=== PATIENT | male | born 1970 | race Caucasian/White ===

== ENCOUNTER 2020-04-02 14:30 | Emergency (ER) | payer SELFPAY ==
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
[2020-04-02 14:50] VITALS: BP 121/83; PULSE 68; RESP 18; TEMP 36.6; O2SAT 97; BMI 29.4
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
--- NOTE | 2020-04-02 16:28 | PC.NURSE ---
Patient resting in chair with SO at bedside. Updated waiting for imaging.
[2020-04-02 17:09] VITALS: PULSE 69; RESP 17; O2SAT 94
--- NOTE | 2020-04-02 17:23 | PC.NURSE ---
Patient updated on POC. Denies any needs at this time
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
== END 2020-04-02 17:09 | disposition home or self-care (01) ==
PROVIDERS: Emergency Provider Nurse Practitioner Family
DX: S49.82XA Other specified injuries of left shoulder and upper arm, initial encounter (principal); W23.0XXA Caught, crushed, jammed, or pinched between moving objects, initial encounter
CPT/HCPCS: 12345; 73000; 73030; 99281; 99282

== ENCOUNTER 2020-12-09 13:43 | Emergency (ER) | payer SELFPAY ==
[2020-12-09 13:49] VITALS: BP 124/85; PULSE 87; RESP 18; TEMP 37.1; O2SAT 96; BMI 28.3
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
[2020-12-09] MEDS: iohexol 300 mg/mL 100 mL Btl IV (15:02)
[2020-12-09 15:10] VITALS: BP 116/76; PULSE 72; RESP 18; O2SAT 95
== END 2020-12-09 16:03 | disposition home or self-care (01) ==
PROVIDERS: Emergency Provider Family Medicine
DX: S22.31XA Fracture of one rib, right side, initial encounter for closed fracture (principal); S09.8XXA Other specified injuries of head, initial encounter; S00.01XA Abrasion of scalp, initial encounter; V44.6XXA Car passenger injured in collision with heavy transport vehicle or bus in traffic accident, initial encounter
CPT/HCPCS: 70450; 71260; 72125; 99283; Q9967

== ENCOUNTER 2021-11-01 11:24 | Emergency (ER) | payer OTHER, SELFPAY ==
[2021-11-01 11:45] VITALS: BP 125/77; PULSE 76; RESP 18; TEMP 36.6; O2SAT 97
[2021-11-01 12:02] VITALS: BP 125/77; PULSE 76; RESP 16; O2SAT 96
--- NOTE | 2021-11-01 12:11 | CT_ITS ---
WS: [id number] CT HEAD TECHNIQUE: Noncontrast CT of the head obtained from the skullbase to the vertex. CLINICAL INFORMATION: migraine COMPARISON: December 01, 2020 DLP: 1012.[address] scans at [facility] use at least one of these dose optimization techniques: automated e xposure control; mA and/or kV adjustment per patient size (includes targeted exams where dose is matc hed to clinical indication); or iterative reconstruction. FINDINGS: No evidence of intracranial hemorrhage or mass effect. Ventricular system and basal cisterns are johnson nt. No extra-axial fluid collections. No evidence of mass or mass effect. Normal gomez-white different iation. Mild mucosal thickening ethmoid air cells. Mastoid air cells well aerated. CT/CT head wo con* [id number] IMPRESSION: 1. No evidence of intracranial hemorrhage or mass effect. 2. Normal gomez-white differentiation. 3. Mild mucosal thickening ethmoid air cells. 4. No acute intracranial findings.
--- NOTE | 2021-11-01 12:12 | ED_ITS ---
HPI - Headache General: Chief Complaint: Headache Stated Complaint: Headache, pain into back as well Time Seen by Provider: 11/01/21 12:01 History of Present Illness: Patient is a 51-year-old male comes the ED with a headache. Symptoms started yesterday. Patient says he does have a history of migraines. He rates his current migraine a 10 out of 10. Migraine seems worse than past migraines. Says the pain starts at the front of his head and radiates over the top of his head and down into his neck. Endorses nausea. Lights make headache worse. Patient also endorses having a swollen tender knot on his forehead since headache started. He denies any injury, head trauma to cause symptoms. Denies any neurological symptoms such as vision changes, weakness to 1 side of his body or numbness or tingling to face. Associated symptoms: Reports nausea; Deny chest pain, fever(s), rash or vomiting Review of Systems Const: Denies: fever(s), chills or fatigue Eyes: Reports: photophobia; Denies: change in vision or eye discomfort ENMT: Denies: throat pain, odynophagia, nasal discharge or nasal congestion Card: Denies: chest pain, palpitations, edema, swelling of feet/ankles, dyspnea on exertion or orthopnea Resp: Denies: dyspnea, productive cough or non-productive cough GI: Reports: nausea; Denies: abdominal pain, vomiting, diarrhea, constipation or hematochezia : Denies: flank pain, difficulty urinating, dysuria or hematuria Musc: Denies: neck pain, back pain or extremity swelling Skin/Breast: Denies: rash or new lesions Neuro: Reports: headache(s); Denies: numbness in extremities or weakness in extremities [facility] ED PFSH: Medical History Migraine No pertinent family history Physical Exam Const: COMMON NORMALS: no acute distress, patient oriented x3 and alert GENERAL APPEARANCE: cooperative and comfortable HENMT: COMMON NORMALS: normocephalic HEAD & SCALP: normocephalic MOUTH: Normal oral and palatal mucosa present THROAT: posterior oropharynx normal and uvula midline Eye: COMMON NORMALS: Equal, round and reactive pupils present, EOMs intact bilaterally and conjunctivae normal CONJUNCTIVA: Yes conjunctivae normal PUPIL: Yes Equal, round and reactive pupils present Neck/C-Spine: COMMON NORMALS: supple GENERAL: Yes normal visual inspection Resp: COMMON NORMALS: normal respiratory effort, No retractions, No use of accessory muscles and clear to auscultation bilaterally AUSCULTATION: clear to auscultation bilaterally Cardio: COMMON NORMALS: regular rate, regular rhythm, S1 normal heart sound present, S2 normal heart sound present, No gallops present (Cardio), No clicks present (Cardio), No murmurs present (Cardio) and Peripheral pulses 2+ throughout RATE: regular rate RHYTHM: regular rhythm HEART SOUNDS: S1 normal heart sound present and S2 normal heart sound present PERIPHERAL PULSES: Peripheral pulses 2+ throughout GI: COMMON NORMALS: Normal to inspection, nondistended, normoactive bowel sounds present, Soft to palpation, non-tender and no masses PALPATION: Yes Soft to palpation : COMMON NORMALS: Yes no CVA tenderness BLADDER/KIDNEY EXAM: Yes no CVA tenderness Back/Pelvis: COMMON NORMALS: no CVA tenderness Extremity: COMMON NORMALS: normal to inspection Neuro: COMMON NORMALS: patient oriented x3, CN's II-XII intact bilaterally, moves all extremities, no focal motor deficits and no sensory deficits noted SENSORIUM/ORIENTATION: Yes alert SENSORY EXAM: Yes extremities (intact) MOTOR EXAM: 5/5 motor strength present throughout Skin: GENERAL SKIN EXAM: dry skin Course Reevaluation(s): Reevaluation #1: Patient's migraine has gotten better. He he feels like it is more manageable and he is ready to be discharged to go home and rest. Time: 13:34 Vital Signs: Vital signs: Vital Signs Temperature 97.9 F 11/01/21 11:45 Pulse Rate 76 11/01/21 12:02 Respiratory Rate 16 11/01/21 12:02 Blood Pressure 125/77 11/01/21 12:02 Pulse Oximetry 96 11/01/21 12:02 MDM - Headache Medical Decision Making Patient is a 51-year-old male comes to the ED with migraine. Patient has past medical history of migraines. Migraine is similar but pain is worse than previous migraines. vitals are stable. Exam is benign and neuro exam is normal. CT of head showed no acute findings. Patient was given IV migraine cocktail and his symptoms improved and wanted to go home and rest. Patient was discharged home and I will do follow-up with his PCP in the next week for reevaluation. Patient understood and agree with plan. Lab Data Radiology Impressions Head CT 11/01/21 12:11 IMPRESSION: 1. No evidence of intracranial hemorrhage or mass effect. 2. Normal gomez-white differentiation. 3. Mild mucosal thickening ethmoid air cells. 4. No acute intracranial findings. Discharge Plan Discharge Patient Disposition: Home Clinical Impression: Migraine Qualifiers: Migraine type: without aura Status migrainosus presence: without status migrainosus Intractability: not intractable Qualified Code(s): G43.009 - Migraine without aura, not intractable, without status migrainosus Condition: Stable Prescriptions: No Action No Known Home Medications 0RF hydrocodone-acetaminophen 5-325 mg tablet 1 tab PO Q8H PRN (Reason: pain) Qty: 21 0RF Discharge Orders: Discharge ED (Routine); Ordered 11/01/21 Ordered By: Ángel Soto Discharge Diet: Regular Discharge Activity: Increase activity as tolerated Patient Instructions: Headache - Migraine (Adult) Activity Restrictions/Additional Instructions: Follow-up with medical provider as directed in the next 7 to 10 days for reevaluation. Return to the ER or your medical provider if condition worsens. Please read and understand discharge instructions. Thank you for choosing [facility] for your healthcare needs today. Please realize this is an emergency room and that we are providing you with a medical screening exam and this may not be complete and all inclusive of all the testing and or work up that you may need to determine your ailment or severity of your illness. It is very important that you follow up as instructed or that you return to the Emergency Department should you have concerns or if your condition changes or worsens in any way. Coding Level of Care Code ED Kicking Machine Operator for Rajeev Fwdamian Exam Comprehensive
[2021-11-01] MEDS: metoclopramide 5 mg/mL SDV 2 mL 10 MG IVP (12:33)
[2021-11-01] MEDS: diphenhydrAMINE 50 mg/mL SDV 1mL 25 MG IVP (12:34)
[2021-11-01] MEDS: dexamethasone 10 mg/mL INJ IVP (12:36)
[2021-11-01] MEDS: ketorolac 30 mg/mL INJ IVP (12:36)
[2021-11-01] MEDS: sodium chloride 0.9% 500 ML 999 ML IV (12:37)
== END 2021-11-01 13:56 | disposition home or self-care (01) ==
PROVIDERS: Emergency Provider Physician Assistant
DX: G43.009 Migraine without aura, not intractable, without status migrainosus (principal)
CPT/HCPCS: 70450; 96374; 96375; 99283; J1100; J1200; J1885; J2765; J7040

== ENCOUNTER 2022-09-05 16:57 | Emergency (ER) | payer OTHER, SELFPAY ==
[2022-09-05 17:05] VITALS: PULSE 78; RESP 16; TEMP 36.4; O2SAT 96
[2022-09-05 17:22] VITALS: O2SAT 95
--- NOTE | 2022-09-05 17:22 | XRR_ITS ---
PROCEDURE INFORMATION: Exam: XR Chest Exam date and time: 09/05/2022 6:15 PM Age: 52 years old Clinical indication: Cough and shortness of breath; Additional info: Dyspnea/cough TECHNIQUE: Imaging protocol: Radiologic exam of the chest. Views: 1 view. COMPARISON: CT chest w con* [id number] 12/09/2020 2:55 PM FINDINGS: Lungs: Unremarkable. No consolidation. Pleural spaces: Unremarkable. No pleural effusion. No pneumothorax. Heart/Mediastinum: Unremarkable. No cardiomegaly. Bones/joints: Unremarkable. XR/XR chest 1V portable [id number] IMPRESSION: No acute findings.
[2022-09-05 17:30] VITALS: BP 120/77; O2SAT 93
[2022-09-05 17:38] LABS: Basophils % 0.3 %; Eosinophils # 0.3 10^3/uL (0.0-0.8); Eosinophils % 2.2 %; Hematocrit 45.4 % (42.0-52.0); Hemoglobin 15.2 g/dL (11.7-16.6); Lymphocytes # 2.7 10^3/uL (0.8-4.8); Lymphocytes % 23.7 %; Mean Corpuscular HGB Conc 33.5 g/dL (30.0-36.0); Mean Corpuscular Hemoglobin 30.8 pg (28.0-34.0); Mean Corpuscular Volume 91.9 fl (80-94); Mean Platelet Volume 8.9 fL (7.4-10.4); Monocytes # 1.1 10^3/uL (0.2-0.9); Monocytes % 9.4 %; Neutrophils # 7.39 10^3/uL (1.8-7.7); Neutrophils % 64.1 %; Nucleated Red Blood Cells % 0 %; Platelet Count 335 10^3/cmm (130-400); Red Blood Count 4.94 10^6/uL (4.1-5.3); Red Cell Distribution Width 13.2 % (12.1-15.1); White Blood Count 11.5 10^3/uL (4.0-10.0)
--- NOTE | 2022-09-05 17:38 | W.ED.NEUROSD ---
Documented by User: Gilson Gabriel DO 09/06/22 06:15 HPI - Neuro Symptoms/Deficit General: Chief Complaint: Neuro Symptoms/Deficit Stated Complaint: poss stroke symptoms Time Seen by Provider: 09/05/22 17:12 Source: patient Mode of arrival: ambulatory History of Present Illness: 52-year-old male presents emergency room initially told staff that his symptoms began about an hour and a half ago. When I went to the room he states his symptoms initially began with some numbness on his left side at around 1230. His family noticed that his speech has been slurred. NIH score when I first examined the patient he had one-point for dysarthria did not appear to have a sleep speech slurring but all the rest of his exam was normal. He denies any chest or abdominal pain. He has no history of previous stroke. Does have a history of migraines. Last Observed Normal: 12:30 Location: speech Severity: mild Relieving factors: none Exacerbating factors: none Context: gradual onset (Started around 1230 today) Associated symptoms: Deny chest pain, cough, diaphoresis, fevers/chills, headache(s), anorexia, malaise, nausea, seizures, short of breath, syncope, tingling, vertigo, vomiting or weakness Treatments Prior to Arrival: none Review of Systems Const: Denies: fever(s), chills, malaise or diaphoresis ENMT: Denies: throat pain, ear or mastoid pain, nasal discharge or nasal congestion Card: Denies: chest pain or syncope Resp: Denies: dyspnea, productive cough or non-productive cough GI: Denies: abdominal pain, nausea or vomiting : Denies: flank pain, dysuria, urinary frequency or urinary urgency Skin/Breast: Denies: rash or pruritus Neuro: Denies: headache(s) or vertigo PFS ED PFSH: Medical History Migraine No pertinent family history NIH stroke score NIHSS: Level Of Consciousness - 1a: 0 Level Of Consciousness Questions - 1b: Both Correct Level Of Consciousness Commands - 1c: Both Correct Best Gaze - 2: Normal Visual Stone - 3: No Visual Loss Facial Palsy - 4: Normal Motor Arm Right - 5: No Drift Motor Arm Left - 5: No Drift Motor Leg Right - 6: No Drift Motor Leg Left - 6: No Drift Limb Ataxia - 7: Absent Sensory - 8: Normal Best Language - 9: No Aphasia Dysarthia - 10: Mild/Moderate Dysarthia Extinction And Inattention - 11: 0 Score: Total Score: 1 Physical Exam Const: GENERAL APPEARANCE: cooperative and comfortable ORIENTATION/CONSCIOUSNESS: Yes awake, Yes oriented to person, Yes oriented to place and Yes oriented to time HENMT: COMMON NORMALS: normocephalic, atraumatic and hearing grossly normal bilaterally HEAD & SCALP: normocephalic and atraumatic Resp: COMMON NORMALS: normal respiratory effort, No retractions, No use of accessory muscles and clear to auscultation bilaterally AUSCULTATION: clear to auscultation bilaterally Cardio: COMMON NORMALS: regular rate, regular rhythm and No murmurs present (Cardio) RATE: regular rate RHYTHM: regular rhythm GI: COMMON NORMALS: Soft to palpation and No hepatosplenomegaly present AUSCULTATION: Yes normoactive bowel sounds PALPATION: Yes Soft to palpation, No Tenderness to palpation present (GI), No Guarding due to palpation present (GI) and Yes No hepatosplenomegaly present Extremity: COMMON NORMALS: normal to inspection, capillary refill normal, no clubbing, cyanosis or edema, no calf tenderness and no pedal edema Neuro: SENSORIUM/ORIENTATION: Yes oriented to person, Yes oriented to place and Yes oriented to time Skin: COMMON NORMALS: no rashes or lesions noted GENERAL SKIN EXAM: no rashes or lesions noted Course Vital Signs: Vital signs: Vital Signs Temperature 97.6 F 09/05/22 17:05 Pulse Rate 66 09/05/22 19:00 Respiratory Rate 20 H 09/05/22 19:00 Blood Pressure 114/75 09/05/22 19:00 Pulse Oximetry 95 09/05/22 19:00 Oxygen Delivery Me thod 09/05/22 17:05 MDM - Neuro Symptoms/Deficit Medical Decision Making Care signed out to Dr. Barker at change of shift. See final notes for diagnosis and disposition. Lab Data 09/05/22 17:10 09/05/22 17:10 Radiology Impressions Chest X-Ray 09/05/22 17:22 IMPRESSION: No acute findings. Laboratory Results WBC 11.5 10^3/uL (4.0-10.0) H 09/05/22 17:10 RBC 4.94 10^6/uL (4.1-5.3) 09/05/22 17:10 Hgb 15.2 g/dL (11.7-16.6) 09/05/22 17:10 Hct 45.4 % (42.0-52.0) 09/05/22 17:10 MCV 91.9 fl (80-94) 09/05/22 17:10 MCH 30.8 pg (28.0-34.0) 09/05/22 17:10 MCHC 33.5 g/dL (30.0-36.0) 09/05/22 17:10 RDW 13.2 % (12.1-15.1) 09/05/22 17:10 Plt Count 335 10^3/cmm (130-400) 09/05/22 17:10 MPV 8.9 fL (7.4-10.4) 09/05/22 17:10 Neut % (Auto) 64.1 % 09/05/22 17:10 Lymph % (Auto) 23.7 % 09/05/22 17:10 [place] % (Auto) 9.4 % 09/05/22 17:10 Eos % (Auto) 2.2 % 09/05/22 17:10 Baso % (Auto) 0.3 % 09/05/22 17:10 Neut # (Auto) 7.39 10^3/uL (1.8-7.7) 09/05/22 17:10 Lymph # (Auto) 2.7 10^3/uL (0.8-4.8) 09/05/22 17:10 [place] # (Auto) 1.1 10^3/uL (0.2-0.9) H 09/05/22 17:10 Eos # (Auto) 0.3 10^3/uL (0.0-0.8) 09/05/22 17:10 Baso # (Auto) 0.0 10^3/uL (0.0-0.1) 09/05/22 17:10 Nucleated RBC % (auto) 0 % 09/05/22 17:10 Nucleated RBCs # 0.0 /100WBC 09/05/22 17:10 Sodium 135 mmol/L (136-145) L 09/05/22 17:10 Potassium 4.0 mmol/L (3.5-5.1) 09/05/22 17:10 Chloride 99 mmol/L (98-107) 09/05/22 17:10 Carbon Dioxide 26 mmol/L (22-29) 09/05/22 17:10 Anion Gap 14.0 (5-19) 09/05/22 17:10 BUN 7 mg/dL (6-20) 09/05/22 17:10 Creatinine 0.9 mg/dL (0.7-1.2) 09/05/22 17:10 GFR Calculation 89.3 mL/min (90-130) L 09/05/22 17:10 Glucose 141 mg/dL (65-115) H 09/05/22 17:10 Calculated Osmolality 280 mOsm/kg (285-295) L 09/05/22 17:10 Calcium 8.9 mg/dL (8.5-10.5) 09/05/22 17:10 Total Bilirubin 0.2 mg/dL (0.15-1.2) 09/05/22 17:10 AST 16 U/L (0-40) 09/05/22 17:10 ALT 14 U/L (0-41) 09/05/22 17:10 Alkaline Phosphatase 55 U/L (40-130) 09/05/22 17:10 Total Protein 6.8 g/dL (6.6-8.7) 09/05/22 17:10 Albumin 4.2 g/dL (3.5-5.2) 09/05/22 17:10 Globulin 2.6 g/dL (1.3-4.6) 09/05/22 17:10 Lipase 29 U/L (13-60) 09/05/22 17:10 Urine Color Yellow (Yellow) 09/05/22 17:50 Urine Appearance Clear (CLEAR) 09/05/22 17:50 Urine pH 7 (5-7) 09/05/22 17:50 Ur Specific [place] 1.005 (1.005-1.030) 09/05/22 17:50 Urine Protein Neg (Negative) 09/05/22 17:50 Urine Glucose (UA) Norm (Normal) 09/05/22 17:50 Urine Ketones Negative (Negative) 09/05/22 17:50 Urine Blood Neg (Negative) 09/05/22 17:50 Urine Nitrate Negative (Negative) 09/05/22 17:50 Urine Bilirubin Neg (Negative) 09/05/22 17:50 Urine Urobilinogen Neg mg/dL (Negative) 09/05/22 17:50 Ur Leukocyte Esterase Negative (Negative) 09/05/22 17:50 Urine Opiates Screen Negative ng/mL (Negative) 09/05/22 17:50 Ur Barbiturates Screen Negative ng/mL (Negative) 09/05/22 17:50 Ur Phencyclidine Scrn Negative ng/mL (Negative) 09/05/22 17:50 Ur Amphetamines Screen Negative ng/mL (Negative) 09/05/22 17:50 U Benzodiazepines Scrn Negative ng/mL (Negative) 09/05/22 17:50 Urine Cocaine Screen Negative ng/mL (Negative) 09/05/22 17:50 U Marijuana (THC) Screen Positive ng/mL (Negative) H 09/05/22 17:50 Ethyl Alcohol < 10 mg/dL (0-10) 09/05/22 17:10 Discharge Plan Discharge Patient Disposition: Left Against Medical Advice Clinical Impression: Weakness Condition: Stable Prescriptions: No Action No Known Home Medications hydrocodone-acetaminophen 5-325 mg tablet 1 tab PO Q8H PRN (Reason: pain) Qty: 21 0RF Coding Level of Care Code ED College Counselor for Chg Fwd Documented by User: Sandra Barker MD 09/05/22 19:59 HPI - Neuro Symptoms/Deficit General: Chief Complaint: Neuro Symptoms/Deficit Stated Complaint: poss stroke symptoms Time Seen by Provider: 09/05/22 17:12 PFSH ED PFSH: Medical History Migraine No pertinent family history NIH stroke score Score: Total Score: 1 Course Vital Signs: Vital signs: Vital Signs Temperature 97.6 F 09/05/22 17:05 Pulse Rate 66 09/05/22 19:00 Respiratory Rate 20 H 09/05/22 19:00 Blood Pressure 114/75 09/05/22 19:00 Pulse Oximetry 95 09/05/22 19:00 Oxygen Delivery Me thod 09/05/22 17:05 MDM - Neuro Symptoms/Deficit Medical Decision Making Care signed out to Dr. Barker at change of shift. See final notes for diagnosis and disposition. Patient had walked out of the hospital and did not let anyone know. He just left hand spoke to the nurse I never got to speak to him either unsure why he left went out to the parking to look for was not able to be found and he eloped. Lab Data 09/05/22 17:10 09/05/22 17:10 Radiology Impressions Chest X-Ray 09/05/22 17:22 IMPRESSION: No acute findings. Laboratory Results WBC 11.5 10^3/uL (4.0-10.0) H 09/05/22 17:10 RBC 4.94 10^6/uL (4.1-5.3) 09/05/22 17:10 Hgb 15.2 g/dL (11.7-16.6) 09/05/22 17:10 Hct 45.4 % (42.0-52.0) 09/05/22 17:10 MCV 91.9 fl (80-94) 09/05/22 17:10 MCH 30.8 pg (28.0-34.0) 09/05/22 17:10 MCHC 33.5 g/dL (30.0-36.0) 09/05/22 17:10 RDW 13.2 % (12.1-15.1) 09/05/22 17:10 Plt Count 335 10^3/cmm (130-400) 09/05/22 17:10 MPV 8.9 fL (7.4-10.4) 09/05/22 17:10 Neut % (Auto) 64.1 % 09/05/22 17:10 Lymph % (Auto) 23.7 % 09/05/22 17:10 [place] % (Auto) 9.4 % 09/05/22 17:10 Eos % (Auto) 2.2 % 09/05/22 17:10 Baso % (Auto) 0.3 % 09/05/22 17:10 Neut # (Auto) 7.39 10^3/uL (1.8-7.7) 09/05/22 17:10 Lymph # (Auto) 2.7 10^3/uL (0.8-4.8) 09/05/22 17:10 [place] # (Auto) 1.1 10^3/uL (0.2-0.9) H 09/05/22 17:10 Eos # (Auto) 0.3 10^3/uL (0.0-0.8) 09/05/22 17:10 Baso # (Auto) 0.0 10^3/uL (0.0-0.1) 09/05/22 17:10 Nucleated RBC % (auto) 0 % 09/05/22 17:10 Nucleated RBCs # 0.0 /100WBC 09/05/22 17:10 Sodium 135 mmol/L (136-145) L 09/05/22 17:10 Potassium 4.0 mmol/L (3.5-5.1) 09/05/22 17:10 Chloride 99 mmol/L (98-107) 09/05/22 17:10 Carbon Dioxide 26 mmol/L (22-29) 09/05/22 17:10 Anion Gap 14.0 (5-19) 09/05/22 17:10 BUN 7 mg/dL (6-20) 09/05/22 17:10 Creatinine 0.9 mg/dL (0.7-1.2) 09/05/22 17:10 GFR Calculation 89.3 mL/min (90-130) L 09/05/22 17:10 Glucose 141 mg/dL (65-115) H 09/05/22 17:10 Calculated Osmolality 280 mOsm/kg (285-295) L 09/05/22 17:10 Calcium 8.9 mg/dL (8.5-10.5) 09/05/22 17:10 Total Bilirubin 0.2 mg/dL (0.15-1.2) 09/05/22 17:10 AST 16 U/L (0-40) 09/05/22 17:10 ALT 14 U/L (0-41) 09/05/22 17:10 Alkaline Phosphatase 55 U/L (40-130) 09/05/22 17:10 Total Protein 6.8 g/dL (6.6-8.7) 09/05/22 17:10 Albumin 4.2 g/dL (3.5-5.2) 09/05/22 17:10 Globulin 2.6 g/dL (1.3-4.6) 09/05/22 17:10 Lipase 29 U/L (13-60) 09/05/22 17:10 Urine Color Yellow (Yellow) 09/05/22 17:50 Urine Appearance Clear (CLEAR) 09/05/22 17:50 Urine pH 7 (5-7) 09/05/22 17:50 Ur Specific [place] 1.005 (1.005-1.030) 09/05/22 17:50 Urine Protein Neg (Negative) 09/05/22 17:50 Urine Glucose (UA) Norm (Normal) 09/05/22 17:50 Urine Ketones Negative (Negative) 09/05/22 17:50 Urine Blood Neg (Negative) 09/05/22 17:50 Urine Nitrate Negative (Negative) 09/05/22 17:50 Urine Bilirubin Neg (Negative) 09/05/22 17:50 Urine Urobilinogen Neg mg/dL (Negative) 09/05/22 17:50 Ur Leukocyte Esterase Negative (Negative) 09/05/22 17:50 Urine Opiates Screen Negative ng/mL (Negative) 09/05/22 17:50 Ur Barbiturates Screen Negative ng/mL (Negative) 09/05/22 17:50 Ur Phencyclidine Scrn Negative ng/mL (Negative) 09/05/22 17:50 Ur Amphetamines Screen Negative ng/mL (Negative) 09/05/22 17:50 U Benzodiazepines Scrn Negative ng/mL (Negative) 09/05/22 17:50 Urine Cocaine Screen Negative ng/mL (Negative) 09/05/22 17:50 U Marijuana (THC) Screen Positive ng/mL (Negative) H 09/05/22 17:50 Ethyl Alcohol < 10 mg/dL (0-10) 09/05/22 17:10 Discharge Plan Discharge Patient Disposition: Left Against Medical Advice Clinical Impression: Weakness Condition: Stable Prescriptions: No Action No Known Home Medications hydrocodone-acetaminophen 5-325 mg tablet 1 tab PO Q8H PRN (Reason: pain) Qty: 21 0RF Coding Level of Care Code ED College Counselor for Chg Umair
--- NOTE | 2022-09-05 17:48 | ECG_ITS ---
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 Measurements Intervals [place] Rate: 70 P: 52 NH: 145 QRS: 63 QRSD: 98 T: 14 QT: 385 QTc: 418 Interpretive Statements SINUS RHYTHM No previous ECG available for comparison Electronically Signed On 09-05-2022 18:06:56 DEBURRER STRIP by Ean Maciel M.D. [email or web address]
[2022-09-05 18:00] VITALS: BP 119/75; PULSE 70; RESP 21; O2SAT 94
[2022-09-05 18:02] LABS: Add Urine Microscopic? NO; Charge for UA Resulting for Rev
[2022-09-05 18:02] LABS: Alanine Aminotransferase 14 U/L (0-41); Albumin Level 4.2 g/dL (3.5-5.2); Alkaline Phosphatase 55 U/L (40-130); Aspartate Amino Transferase 16 U/L (0-40); Blood Urea Nitrogen 7 mg/dL (6-20); Calcium 8.9 mg/dL (8.5-10.5); Carbon Dioxide 26 mmol/L (22-29); Chloride 99 mmol/L (98-107); Globulin 2.6 g/dL (1.3-4.6); Glomerular Filtration Rate 89.3 mL/min (90-130); Glucose 141 mg/dL (65-115); Lipase 29 U/L (13-60); Osmolality Calculated 280 mOsm/kg (285-295); Sodium 135 mmol/L (136-145); Total Bilirubin 0.2 mg/dL (0.15-1.2); Total Protein 6.8 g/dL (6.6-8.7)
[2022-09-05 18:05] LABS: Alcohol Level < 10 mg/dL (0-10)
[2022-09-05 18:23] LABS: Bilirubin Urine Neg (Negative); Blood Urine Neg (Negative); Glucose Urine UA Norm (Normal); Ketones Urine Negative (Negative); Leukocyte Esterase Urine Negative (Negative); Nitrate Urine Negative (Negative); Protein Urine Neg (Negative); Specific Gravity, Urine 1.005 (1.005-1.030); Urine Appearance Clear (CLEAR); Urine Color Yellow (Yellow); Urobilinogen Urine Neg (Negative); pH Urine 7 (5-7)
[2022-09-05 18:26] LABS: Amphetamines Screen Urine Negative (Negative); Barbiturates Screen Urine Negative (Negative); Benzodiazepines Screen Urine Negative (Negative); Cocaine Screen Urine Negative (Negative); Opiate Screen Urine Negative (Negative); PCP Screen Urine Negative (Negative); THC Screen Urine Positive (Negative)
[2022-09-05 18:30] VITALS: BP 118/71; PULSE 69; RESP 17; O2SAT 95
[2022-09-05 19:00] VITALS: BP 114/75; PULSE 66; RESP 20; O2SAT 95
--- NOTE | 2022-09-05 19:58 | PC.NURSE ---
Patient was let out of the unit with IV still in. Registration called patient's cell phone and 's cell phone and left a message for them to come back and let us take it out.
== END 2022-09-05 19:45 | disposition left against medical advice (07) ==
PROVIDERS: Family Medicine; Emergency Provider Emergency Medicine
DX: R53.1 Weakness (principal); Z53.21 Procedure and treatment not carried out due to patient leaving prior to being seen by health care provider
CPT/HCPCS: 71045; 80053; 80306; 80307; 81003; 83690; 85025; 93005; 99285

== ENCOUNTER 2022-09-06 09:50 | Emergency (ER) | payer OTHER, SELFPAY ==
[2022-09-06 09:54] VITALS: BP 148/94; PULSE 74; RESP 16; TEMP 37.2; O2SAT 96; BMI 27.9
--- NOTE | 2022-09-06 10:29 | W.ED.SKABFB ---
HPI - Skin/Abscess/Foreign Bdy General: Chief complaint: Skin/Abscess/Foreign Body Stated complaint: head pain, knot on back of neck Time Seen by Provider: 09/06/22 10:01 Source: patient Mode of arrival: ambulatory History of Present Illness: 52-year-old male who was seen yesterday in the emergency room for weakness restarted doing stroke work-up a CT of his head was not done because he left AMA. He had no focal neurologic test when he was seen yesterday and is none today he is concerned today about graft glass rupturing through his head from an old accident he is also worried about several excoriated areas that he is concerned are infected on his arms. Finally he says he has been dizzy and lightheaded with his symptoms are persistent it is for several days male who is in part what he was seen for yesterday is observed walking down the souza with a normal gait. MD complaint: lesion (Excoriated areas on right cheek and both forearms) Onset (ago): day(s) Relieving factors: none Exacerbating factors: none Associated symptoms: Deny arthralgias, chills, cough, fever(s), itching, myalgias, nausea, rigidity, short of breath or vomiting Treatments prior to arrival: none Review of Systems Const: Denies: fever(s), chills, fatigue or malaise ENMT: Denies: throat pain, ear or mastoid pain, nasal discharge or nasal congestion Card: Denies: chest pain, edema, dyspnea on exertion or orthopnea Resp: Denies: dyspnea, productive cough or non-productive cough GI: Denies: abdominal pain, nausea or vomiting : Denies: flank pain, dysuria, urinary frequency or urinary urgency Skin/Breast: Denies: rash or pruritus [facility] ED PFSH: Medical History Migraine No pertinent family history Physical Exam Const: COMMON NORMALS: no acute distress GENERAL APPEARANCE: cooperative and comfortable ORIENTATION/CONSCIOUSNESS: Yes awake, Yes oriented to person, Yes oriented to place and Yes oriented to time HENMT: COMMON NORMALS: normocephalic, atraumatic and hearing grossly normal bilaterally HEAD & SCALP: normocephalic and atraumatic Resp: COMMON NORMALS: normal respiratory effort, No retractions, No use of accessory muscles and clear to auscultation bilaterally AUSCULTATION: clear to auscultation bilaterally Cardio: COMMON NORMALS: regular rate, regular rhythm and No murmurs present (Cardio) RATE: regular rate RHYTHM: regular rhythm GI: COMMON NORMALS: Soft to palpation and No hepatosplenomegaly present AUSCULTATION: Yes normoactive bowel sounds PALPATION: Yes Soft to palpation, No Tenderness to palpation present (GI), No Guarding due to palpation present (GI) and Yes No hepatosplenomegaly present Extremity: COMMON NORMALS: normal to inspection, capillary refill normal, no clubbing, cyanosis or edema, no calf tenderness and no pedal edema Neuro: SENSORIUM/ORIENTATION: Yes oriented to person, Yes oriented to place and Yes oriented to time Skin: COMMON NORMALS: no rashes or lesions noted GENERAL SKIN EXAM: no rashes or lesions noted Course Vital Signs: Vital signs: Vital Signs Temperature 98.9 F 09/06/22 09:54 Pulse Rate 64 09/06/22 11:39 Respiratory Rate 16 09/06/22 11:39 Blood Pressure 132/84 09/06/22 11:39 Pulse Oximetry 95 09/06/22 11:39 Oxygen Delivery Me thod 09/06/22 09:54 MDM - Skin/Abscess/Foreign Bdy Medicial Decision Making She was seen yesterday for similar type complaints stroke score was only 1 with some loss sensation in his face no complaint of more dizziness he has had normal gait observed walking is no focal neurologic deficits. He is very concerned with this glass in his head which I cannot really palpate replacement would just allow that to work its way out on its own. He has several excoriated areas on his arms that are minimally red and they can be treated with topical antibiotics we will also add Bactrim 1 p.o. twice a day for 7 days. He is concerned about lymph node in the back of the right side of the neck below the occiput and is palpable less than 1 cm recommend just observation if it persists can be ultrasound in the future. Up with primary care doctor. Follow-up with primary care regarding the excoriated skin lesions we will set him up for MRI of the head and follow-up with neurology Medical Records I reviewed the patient's medical records. Lab Data I reviewed the patient's lab results. Radiology Impressions Head CT 09/06/22 10:31 IMPRESSION: 1. No evidence of intracranial hemorrhage or mass effect. 2. Normal gomez-white differentiation 3. No acute intracranial findings. Discharge Plan Discharge Patient Disposition: Home Clinical Impression: Cellulitis, Neurotic excoriations, Weakness Condition: Stable Prescriptions: New mupirocin 2 % ointment 1 applic topical BID Qty: 22 0RF Bactrim DS 800-160 mg tablet 1 tab PO DAILY 7 Days Qty: 14 0RF No Action ibuprofen [Advil] 200 mg Tablet 400 mg PO Q6H PRN (Reason: Pain) Discharge Orders: Discharge ED (Routine); Ordered 09/06/22 Ordered By: Gilson Gabriel Discharge Diet: Usual diet Discharge Activity: Increase activity as tolerated Patient Instructions: Opioid Safety, Pain Management Activity Restrictions/Additional Instructions: You were seen today for multiple complaints. For the difficulty with balance which has been present for some time we will refer you to neurology. CT of your head today was normal there are no signs that you are having a stroke. Your concern about the glass in the scalp since that is from several years ago we do not remove those at this point would recommend just allowing him to work their way to the surface if they come to the skin then they can be removed at that time. There is a small lymph node in the back of your neck that is less than a centimeter and palpation would just observe that. Several of the excoriated areas on your arms are mildly red and can be treated with topical antibiotic ointment and the oral antibiotic given. Case management make arranges for you to see neurology. Coding Level of Care Code ED Health Care Recruiter for Rajeev Block NIH stroke score NIHSS Level Of Consciousness - 1a: 0 Level Of Consciousness Questions - 1b: Both Correct Level Of Consciousness Commands - 1c: Both Correct Best Gaze - 2: Normal Visual Stone - 3: No Visual Loss Facial Palsy - 4: Normal Motor Arm Right - 5: No Drift Motor Arm Left - 5: No Drift Motor Leg Right - 6: No Drift Motor Leg Left - 6: No Drift Limb Ataxia - 7: Absent Sensory - 8: Mild To Moderate Loss (Left side face only) Best Language - 9: No Aphasia Dysarthia - 10: Normal Extinction And Inattention - 11: 0 Score Total Score: 1
--- NOTE | 2022-09-06 10:31 | CT_ITS ---
WS: [id number] CT HEAD TECHNIQUE: Noncontrast CT of the head obtained from the skullbase to the vertex. CLINICAL INFORMATION: l sided weakness COMPARISON: CT November 01, 2021 DLP: 1121.[address] scans at [facility] use at least one of these dose optimization techniques: automated e xposure control; mA and/or kV adjustment per patient size (includes targeted exams where dose is matc hed to clinical indication); or iterative reconstruction. FINDINGS: No evidence of intracranial hemorrhage or mass effect. Ventricular system and basal cisterns are johnson nt. No extra-axial fluid collections. No evidence of mass or mass effect. Normal gomez-white different iation. Paranasal sinuses and mastoid air cells are well aerated. .Normal visualized soft tissues. No visuali zed radiopaque foreign objects in the scalp CT/CT head wo con* [id number] IMPRESSION: 1. No evidence of intracranial hemorrhage or mass effect. 2. Normal gomez-white differentiation 3. No acute intracranial findings.
[2022-09-06 11:18] VITALS: BP 132/84; PULSE 64; O2SAT 94
[2022-09-06 11:39] VITALS: BP 132/84; PULSE 64; RESP 16; O2SAT 95
--- NOTE | 2022-09-07 09:12 | DCPLANNER ---
Addendum entered by Cynthia Thornton 12/26/22 10:24: Patient had a follow up appointment scheduled with neurology - appointment cancelled Addendum entered by Cynthia Thornton 10/04/22 08:29: Patient had an MRI scheduled - patient did not attend appointment Addendum entered by Cynthia Thornton 09/21/22 07:29: Patient has a follow up appointment scheduled for Monday, October 03, 2022 at 3:15 for an MRI. Addendum entered by Cynthia Thornton 09/11/22 14:49: Patient has a follow up appointment scheduled for Saturday, December 24, 2022 at 12:[address] Wilson at neurology. Clinic will call patient with appointment information. Original Note: rehab department manager had message to schedule a follow up appointment for patient with neurology. child welfare caseworker sent patients information to the front office staff at neurology. Patients information will be printed and reviewed. Clinic will call patient with appointment information. rehab department manager also had message to schedule an outpatient MRI for patient. rehab department manager faxed signed order to centralized scheduling who will call patient with appointment information.
== END 2022-09-06 11:40 | disposition home or self-care (01) ==
PROVIDERS: Emergency Provider Family Medicine
DX: R53.1 Weakness (principal); L98.1 Factitial dermatitis; L03.114 Cellulitis of left upper limb; L03.113 Cellulitis of right upper limb
CPT/HCPCS: 70450; 99284

== ENCOUNTER 2023-02-07 17:35 | Emergency (ER) | payer SELFPAY ==
[2023-02-07 17:44] VITALS: BP 127/78; PULSE 83; RESP 16; O2SAT 96
--- NOTE | 2023-02-07 17:59 | XRR_ITS ---
PROCEDURE INFORMATION: Exam: XR Lumbosacral Spine Exam date and time: 02/07/2023 6:12 PM Age: 52 years old Clinical indication: Low back pain TECHNIQUE: Imaging protocol: Radiologic exam of the lumbosacral spine. Views: 2 or 3 views. COMPARISON: No relevant prior studies available. FINDINGS: Bones/joints: Lumbar vertebral body heights appear maintained. No compression deformity. Alignment appears unremarkable. Disc spaces appear maintained, without significant disc space narrowing. Mild anterior marginal spur formation of the lumbar vertebra indicates mild spondylotic change. Visualized sacrum appears unremarkable. Soft tissues: Unremarkable. XR/XR lumbar spine 2-3V* [id number] IMPRESSION: Mild spondylotic change with small amount anterior vertebral marginal spur formation, and without acute findings.
[2023-02-07 19:36] LABS: Add Urine Microscopic? NO; Charge for UA Resulting for Rev; Urine Appearance Clear (CLEAR); Urine Color Yellow (Yellow)
[2023-02-07 19:37] LABS: Bilirubin Urine Neg (Negative); Blood Urine Neg (Negative); Glucose Urine UA Norm (Normal); Ketones Urine Negative (Negative); Leukocyte Esterase Urine Negative (Negative); Nitrate Urine Negative (Negative); Protein Urine Neg (Negative); Urobilinogen Urine Norm (Negative); pH Urine 6 (5-7)
[2023-02-07] MEDS: cyclobenzaprine 10 mg Tablet PO (20:01)
[2023-02-07] MEDS: ketorolac 60 mg/2 mL INJ IM (20:05)
--- NOTE | 2023-02-07 20:07 | W.ED.BACK ---
HPI - Back Pain/Injury General: Chief Complaint: Back Pain/Injury Stated Complaint: Middle back Pain Time Seen by Provider: 02/07/23 18:59 History of Present Illness: Patient is in today for low back pain. He reports that approximately 2 days ago he started having mid back pain radiating all the way down to the low back. He reports that he does not know of any injury or trauma to the area. 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 He denies any saddle anesthesia, loss of bowel or bladder continence, fever, chills, nausea, vomiting, IV drug use. He denies any urinary frequency, urgency, hematuria. Associated symptoms: Deny abdominal pain, chills, dysuria, fever(s), nausea, syncope, urinary urgency or vomiting Review of Systems Const: Denies: fever(s), chills or body aches Eyes: Denies: change in vision or blurry vision Card: Denies: chest pain, palpitations, irregular heart rhythm, lightheadedness or syncope Resp: Denies: dyspnea, productive cough or non-productive cough GI: Denies: abdominal pain, nausea or vomiting : Denies: flank pain, dysuria, urinary frequency, urinary urgency or urinary hesitancy Musc: Reports: back pain Neuro: Denies: headache(s), numbness in extremities or weakness in extremities [facility] ED PFSH: Medical History Migraine No pertinent family history Physical Exam Const: COMMON NORMALS: no acute distress, patient oriented x3 and alert GENERAL APPEARANCE: cooperative ORIENTATION/CONSCIOUSNESS: Yes awake, Yes oriented to person, Yes oriented to place and Yes oriented to time Neck/C-Spine: COMMON NORMALS: full ROM Resp: COMMON NORMALS: normal respiratory effort, No retractions, No use of accessory muscles and clear to auscultation bilaterally EFFORT & INSPECTION: Yes symmetric chest movement AUSCULTATION: clear to auscultation bilaterally Cardio: COMMON NORMALS: regular rate, regular rhythm, S1 normal heart sound present and S2 normal heart sound present RATE: regular rate RHYTHM: regular rhythm HEART SOUNDS: S1 normal heart sound present and S2 normal heart sound present GI: COMMON NORMALS: Normal to inspection, nondistended, normoactive bowel sounds present, Soft to palpation, non-tender, No hepatosplenomegaly present, no masses and no bruits INSPECTION: Yes normal to inspection PALPATION: Yes Soft to palpation and Yes No hepatosplenomegaly present Back/Pelvis: OTHER: Patient has left side paraspinal muscular tenderness and spasm noted mid to low back. No vertebral point tenderness appreciated. Normal gait. No weakness to lower extremities. Pain is reproduced with palpation of musculature to the left of the spine. Normal straight leg raise Neuro: COMMON NORMALS: patient oriented x3 SENSORIUM/ORIENTATION: Yes alert, Yes oriented to person, Yes oriented to place and Yes oriented to time Psych: COMMON NORMALS: cooperative Course Vital Signs: Vital signs: Vital Signs Pulse Rate 83 02/07/23 17:44 Respiratory Rate 16 02/07/23 17:44 Blood Pressure 127/78 02/07/23 17:44 Pulse Oximetry 96 02/07/23 17:44 Oxygen Delivery Me thod Room Air 02/07/23 17:44 MDM - Back Pain/Injury Medical Decision Making Consider lumbar strain, osteoarthritis, X-ray shows no acute findings but is consistent with mild spondylitic change small amount of anterior vertebral marginal spur formation. Physical exam findings are consistent with muscle strain. We will treat patient conservatively with Toradol and muscle relaxant medication. Educated patient about possible benefits and side effects of medications provided today. Do not drive or operate machinery after taking medication. Do not take any other medications that make you sleepy with the Flexeril medication. Discussed conservative treatment including warm moist compresses, gentle stretches, gentle massage, no lifting x3 days. Follow-up with primary care provider as needed. Return to the ER for new or worsening symptoms. Labs Radiology Impressions Lumbar Spine X-Ray 02/07/23 17:59 IMPRESSION: Mild spondylotic change with small amount anterior vertebral marginal spur formation, and without acute findings. Laboratory Results Urine Color Yellow (Yellow) 02/07/23 19:14 Urine Appearance Clear (CLEAR) 02/07/23 19:14 Urine pH 6 (5-7) 02/07/23 19:14 Ur Specific [place] 1.020 (1.005-1.030) 02/07/23 19:14 Urine Protein Neg (Negative) 02/07/23 19:14 Urine Glucose (UA) Norm (Normal) 02/07/23 19:14 Urine Ketones Negative (Negative) 02/07/23 19:14 Urine Blood Neg (Negative) 02/07/23 19:14 Urine Nitrate Negative (Negative) 02/07/23 19:14 Urine Bilirubin Neg (Negative) 02/07/23 19:14 Urine Urobilinogen Norm mg/dL (Negative) 02/07/23 19:14 Ur Leukocyte Esterase Negative (Negative) 02/07/23 19:14 Discharge Plan Discharge Patient Disposition: Home Clinical Impression: Strain of lumbar region Condition: Stable Prescriptions: New cyclobenzaprine 10 mg tablet 10 mg PO TID PRN (Reason: muscle spasm) Qty: 9 0RF No Action ibuprofen [Advil] 200 mg Tablet 400 mg PO Q6H PRN (Reason: Pain) mupirocin 2 % ointment 1 applic topical BID Qty: 22 0RF Discharge Orders: Discharge ED (Routine); Ordered 02/07/23 Ordered By: Annmarie Finch Discharge Diet: Usual diet Discharge Activity: Limit activity as instructed Patient Instructions: Low Back Strain (ED) Activity Restrictions/Additional Instructions: No lifting x3 days. I recommend gentle stretches, gentle massage, warm compresses. Tomorrow you may start taking ibuprofen every 8 hours with food. Take Flexeril every 8 hours as needed for muscle spasms. Do not drive or operate machinery after taking Flexeril. Do not take any other medication or substance that makes you sleepy while taking Flexeril. Follow-up with primary care provider as needed. Return to the ER for any new or worsening symptoms. Stand Alone Forms: Work/School Release Coding Level of Care Code ED Lead Enterprise Architect for Rajeev Block
[2023-02-07 20:08] VITALS: BP 108/73; PULSE 67; RESP 16; O2SAT 96
== END 2023-02-07 20:09 | disposition home or self-care (01) ==
PROVIDERS: Emergency Provider Nurse Practitioner Family
DX: S39.012A Strain of muscle, fascia and tendon of lower back, initial encounter (principal); X50.1XXA Overexertion from prolonged static or awkward postures, initial encounter
CPT/HCPCS: 72100; 81003; 96372; 99284; J1885

== ENCOUNTER 2023-05-01 13:35 | Emergency (ER) | payer SELFPAY ==
[2023-05-01 13:59] VITALS: BP 119/82; PULSE 79; RESP 16; TEMP 36.8; O2SAT 96
--- NOTE | 2023-05-01 14:35 | ECG_ITS ---
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 Measurements Intervals [place] Rate: 78 P: 64 MN: 142 QRS: 85 QRSD: 110 T: 43 QT: 365 QTc: 417 Interpretive Statements SINUS RHYTHM Compared to ECG 09/05/2022 17:48:06 No significant changes Electronically Signed On 05-01-2023 19:36:51 CDT by Anthony Barros M.D. [id number]
--- NOTE | 2023-05-01 14:35 | XR_ITS ---
WS: [id number] Portable AP upright chest, 05/01/2023 Clinical Data: chest pain Comparison: None. Findings: No nodules, masses or effusions are seen. The heart is normal. The pulmonary vascularity is not increased. No pneumonia or pneumothorax is seen. Impression: Negative chest.
--- NOTE | 2023-05-01 14:54 | ED_ITS ---
HPI - Chest Pain General: Chief Complaint: Chest Pain Stated Complaint: chest/abd pain Time Seen by Provider: 05/01/23 14:50 Source: patient Mode of arrival: ambulatory History of Present Illness: 52-year-old male presents emergency room for chest pain that he had yesterday no chest pain at this time. He has not really noticed anything that exacerbates it or relieves it. He had some earlier today it resolved spontaneously. He is a smoker he is not diabetic no known history of coronary artery disease he has had some family history of coronary artery disease but no early cardiac deaths MD complaint: chest pain Onset (ago): day(s) (3-4) Timing of current episode: episodic Onset: during rest Pain location: substernal Pain radiation: other (LUQ abd) Severity: mild Quality: tightness and sharp Relieving factors: nothing Exacerbating factors: nothing Associated symptoms: Reports abdominal pain; Deny diaphoresis, dyspnea, fever(s), leg edema, nausea, palpitations, sense of impending doom, syncope or vomiting Review of Systems Const: Denies: fever(s), chills or diaphoresis Card: Reports: chest pain; Denies: palpitations or syncope Resp: Denies: dyspnea GI: Reports: abdominal pain; Denies: nausea or vomiting : Denies: dysuria, urinary frequency or urinary urgency Musc: Denies: neck pain or back pain Skin/Breast: Denies: rash PFSH ED PFSH: Medical History Migraine No pertinent family history Physical Exam Const: GENERAL APPEARANCE: cooperative and comfortable ORIENTATION /CONSCIOUSNESS: Yes awake, Yes oriented to person, Yes oriented to place and Yes oriented to time HENMT: COMMON NORMALS: normocephalic, atraumatic and hearing grossly normal bilaterally HEAD & SCALP: normocephalic and atraumatic Resp: COMMON NORMALS: normal respiratory effort, No retractions, No use of accessory muscles and clear to auscultation bilaterally AUSCULTATION: clear to auscultation bilaterally Cardio: COMMON NORMALS: regular rate, regular rhythm and No murmurs present (Cardio) RATE: regular rate RHYTHM: regular rhythm GI: COMMON NORMALS: Soft to palpation and No hepatosplenomegaly present AUSCULTATION: Yes normoactive bowel sounds PALPATION: Yes Soft to palpation, No Tenderness to palpation present (GI), No Guarding due to palpation present (GI) and Yes No hepatosplenomegaly present Extremity: COMMON NORMALS: normal to inspection, capillary refill normal, no clubbing, cyanosis or edema, no calf tenderness and no pedal edema Neuro: SENSORIUM/ORIENTATION: Yes oriented to person, Yes oriented to place and Yes oriented to time Skin: COMMON NORMALS: no rashes or lesions noted GENERAL SKIN EXAM: no rashes or lesions noted Course Vital Signs: Vital signs: Vital Signs Temperature 98.3 F 05/01/23 13:59 Pulse Rate 69 05/01/23 18:17 Respiratory Rate 18 05/01/23 18:17 Blood Pressure 119/82 05/01/23 13:59 Pulse Oximetry 98 05/01/23 18:17 Oxygen Delivery Me thod Room Air 05/01/23 13:59 MDM - Chest Pain Medical Decision Making Serial cardiac enzymes are negative. EKGs do not show any acute changes no ST elevation reviewed as found on the chart discharge patient home baby aspirin daily set up outpatient stress testing also add omeprazole 20 mg daily return if has further problems. Medical Records I reviewed the patient's medical records. Lab Data I reviewed the patient's lab results. 05/01/23 14:56 05/01/23 14:56 Laboratory Results WBC 10.33 10^3/uL (3.29-11.43) 05/01/23 14:56 RBC 5.45 10^6/uL (3.85-5.65) 05/01/23 14:56 Hgb 17.00 g/dL (11.27-16.99) H 05/01/23 14:56 Hct 50.2 % (37-53) 05/01/23 14:56 MCV 92.1 fl (82-101) 05/01/23 14:56 MCH 31.2 pg (27-33) 05/01/23 14:56 MCHC 33.9 g/dL (30-55) 05/01/23 14:56 RDW 13.7 % (12.1-15.1) 05/01/23 14:56 Plt Count 318 10^3/cmm (157-399) 05/01/23 14:56 MPV 8.7 fL (7.4-10.4) 05/01/23 14:56 Neut % (Auto) 57.0 % 05/01/23 14:56 Lymph % (Auto) 31.2 % 05/01/23 14:56 Alexander % (Auto) 7.7 % 05/01/23 14:56 Eos % (Auto) 3.2 % 05/01/23 14:56 Baso % (Auto) 0.6 % 05/01/23 14:56 Neut # (Auto) 5.89 10^3/uL (1.8-7.7) 05/01/23 14:56 Lymph # (Auto) 3.2 10^3/uL (0.8-4.8) 05/01/23 14:56 Alexander # (Auto) 0.8 10^3/uL (0.2-0.9) 05/01/23 14:56 Eos # (Auto) 0.3 10^3/uL (0.0-0.8) 05/01/23 14:56 Baso # (Auto) 0.1 10^3/uL (0.0-0.1) 05/01/23 14:56 Nucleated RBC % (auto) 0 % 05/01/23 14:56 Nucleated RBCs # 0.0 /100WBC 05/01/23 14:56 Sodium 137 mmol/L (136-145) 05/01/23 14:56 Potassium 4.3 mmol/L (3.5-5.1) 05/01/23 14:56 Chloride 98 mmol/L (98-107) 05/01/23 14:56 Carbon Dioxide 28 mmol/L (22-29) 05/01/23 14:56 Anion Gap 15.3 (5-19) 05/01/23 14:56 BUN 8 mg/dL (6-20) 05/01/23 14:56 Creatinine 1.0 mg/dL (0.7-1.2) 05/01/23 14:56 GFR Calculation 79.1 mL/min (90-130) L 05/01/23 14:56 Glucose 92 mg/dL (65-115) 05/01/23 14:56 Calculated Osmolality 282 mOsm/kg (285-295) L 05/01/23 14:56 Calcium 9.7 mg/dL (8.5-10.5) 05/01/23 14:56 Total Bilirubin 0.2 mg/dL (0.15-1.2) 05/01/23 14:56 AST 15 U/L (0-40) 05/01/23 14:56 ALT 16 U/L (0-41) 05/01/23 14:56 Alkaline Phosphatase 53 U/L (40-130) 05/01/23 14:56 Troponin T Baseline < 6 ng/L (0-15) 05/01/23 14:56 Troponin T 120 Minute 6.0 ng/L (0-15) 05/01/23 16:46 Delta Troponin T 0.08714 ABS# (0-10) 05/01/23 16:46 Total Protein 7.7 g/dL (6.6-8.7) 05/01/23 14:56 Albumin 5.1 g/dL (3.5-5.2) 05/01/23 14:56 Globulin 2.6 g/dL (1.3-4.6) 05/01/23 14:56 Lipase 28 U/L (13-60) 05/01/23 14:56 All radiology interpretation(s) finalized by discharge Discharge Plan Discharge Patient Disposition: Home Clinical Impression: Atypical chest pain Condition: Stable Prescriptions: New aspirin 81 mg tablet,delayed release (DR/EC) 81 mg PO DAILY Qty: 30 0RF omeprazole 20 mg capsule,delayed release(DR/EC) 20 mg PO DAILY Qty: 30 0RF No Action ibuprofen 200 mg Tablet 600 mg PO Q6H PRN (Reason: Pain) Discharge Orders: Discharge ED (Routine); Ordered 05/01/23 Ordered By: Gilson Gabriel Discharge Diet: Usual diet Discharge Activity: Limit activity as instructed Patient Instructions: Opioid Safety, Pain Management Activity Restrictions/Additional Instructions: You were seen today for chest pain. Your cardiac enzymes and EKG were unremarkable protective services case worker will make arrangements for an outpatient stress test. Recommend he start taking enteric-coated baby aspirin daily and omeprazole 20 mg daily. Coding Level of Care Code ED Tax Preparer for Rajeev Block
[2023-05-01 15:00] VITALS: PULSE 67; RESP 16; O2SAT 98
[2023-05-01 15:05] LABS: Basophils # 0.1 10^3/uL (0.0-0.1); Basophils % 0.6 %; Eosinophils # 0.3 10^3/uL (0.0-0.8); Eosinophils % 3.2 %; Hematocrit 50.2 % (37-53); Lymphocytes # 3.2 10^3/uL (0.8-4.8); Lymphocytes % 31.2 %; Mean Corpuscular HGB Conc 33.9 g/dL (30-55); Mean Corpuscular Hemoglobin 31.2 pg (27-33); Mean Corpuscular Volume 92.1 fl (82-101); Mean Platelet Volume 8.7 fL (7.4-10.4); Monocytes # 0.8 10^3/uL (0.2-0.9); Monocytes % 7.7 %; Neutrophils # 5.89 10^3/uL (1.8-7.7); Nucleated Red Blood Cells % 0 %; Platelet Count 318 10^3/cmm (157-399); Red Blood Count 5.45 10^6/uL (3.85-5.65); Red Cell Distribution Width 13.7 % (12.1-15.1); White Blood Count 10.33 10^3/uL (3.29-11.43)
[2023-05-01 15:30] VITALS: PULSE 61; O2SAT 96
[2023-05-01 15:31] LABS: Troponin(5th) Baseline < 6 ng/L (0-15)
[2023-05-01 15:32] LABS: Alanine Aminotransferase 16 U/L (0-41); Albumin Level 5.1 g/dL (3.5-5.2); Alkaline Phosphatase 53 U/L (40-130); Anion Gap 15.3 (5-19); Aspartate Amino Transferase 15 U/L (0-40); Blood Urea Nitrogen 8 mg/dL (6-20); Calcium 9.7 mg/dL (8.5-10.5); Carbon Dioxide 28 mmol/L (22-29); Chloride 98 mmol/L (98-107); Globulin 2.6 g/dL (1.3-4.6); Glomerular Filtration Rate 79.1 mL/min (90-130); Glucose 92 mg/dL (65-115); Lipase 28 U/L (13-60); Osmolality Calculated 282 mOsm/kg (285-295); Potassium 4.3 mmol/L (3.5-5.1); Sodium 137 mmol/L (136-145); Total Bilirubin 0.2 mg/dL (0.15-1.2); Total Protein 7.7 g/dL (6.6-8.7)
[2023-05-01 16:00] VITALS: PULSE 65; RESP 16; O2SAT 98
--- NOTE | 2023-05-01 16:44 | ECG_ITS ---
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 Measurements Intervals [place] Rate: 62 P: 54 DC: 153 QRS: 63 QRSD: 101 T: 39 QT: 401 QTc: 408 Interpretive Statements SINUS RHYTHM Compared to ECG 05/01/2023 13:55:03 No significant changes Electronically Signed On 05-01-2023 19:47:25 CDT by Anthony Barros M.D. [id number]
[2023-05-01 17:00] VITALS: PULSE 59; RESP 16; O2SAT 98
[2023-05-01 17:30] LABS: Troponin 5 2HR Delta 0.00001 ABS# (0-10)
[2023-05-01 18:17] VITALS: PULSE 69; RESP 18; O2SAT 98
--- NOTE | 2023-05-08 10:06 | PC.SOCIAL ---
Stress Test Patient does not have a PCP to follow up with stress test results. Message sent to Family medicine requesting appt to establish primary care with recommendations for stress test.
== END 2023-05-01 18:19 | disposition home or self-care (01) ==
PROVIDERS: Physician Assistant; Emergency Provider Family Medicine
DX: R07.89 Other chest pain (principal)
CPT/HCPCS: 36415; 71045; 80053; 83690; 84484; 85025; 93005; 99285

== ENCOUNTER 2023-07-02 11:29 | Emergency (ER) | payer SELFPAY ==
[2023-07-02 11:51] VITALS: BP 138/82; PULSE 71; RESP 16; TEMP 36.4; O2SAT 99; BMI 27.2
[2023-07-02 11:54] LABS: Basophils % 0.5 %; Eosinophils # 0.3 10^3/uL (0.0-0.8); Eosinophils % 4.7 %; Hematocrit 47.4 % (37-53); Lymphocytes # 2.4 10^3/uL (0.8-4.8); Lymphocytes % 35.9 %; Mean Corpuscular HGB Conc 33.3 g/dL (30-55); Mean Corpuscular Hemoglobin 31.2 pg (27-33); Mean Corpuscular Volume 93.7 fl (82-101); Mean Platelet Volume 8.8 fL (7.4-10.4); Monocytes # 0.6 10^3/uL (0.2-0.9); Monocytes % 8.9 %; Neutrophils # 3.28 10^3/uL (1.8-7.7); Neutrophils % 49.7 %; Nucleated Red Blood Cells % 0 %; Platelet Count 322 10^3/cmm (157-399); Red Blood Count 5.06 10^6/uL (3.85-5.65); Red Cell Distribution Width 13.6 % (12.1-15.1)
--- NOTE | 2023-07-02 12:02 | CT_ITS ---
WS: [id number] CT ABDOMEN PELVIS TECHNIQUE: Contrast-enhanced CT of the abdomen and pelvis with coronal and sagittal reformatted image s. CLINICAL INFORMATION: llq pain COMPARISON: CT 2012 DLP: 501.[address] scans at [facility] use at least one of these dose optimization techniques: automated e xposure control; mA and/or kV adjustment per patient size (includes targeted exams where dose is matc hed to clinical indication); or iterative reconstruction. FINDINGS: Diverticulosis. Tiny amount of induration in the LEFT lower quadrant about the sigmoid colon and desc ending LEFT colon compatible with diverticulitis. No drainable abscess or fluid collection. No free f luid in the pelvis. Urine distended bladder. Normal appendix in the RIGHT lower quadrant. Subsegmental atelectasis in the lung bases. Normal liver . Normal spleen. Normal portal vein and splenic vein. Normal GE junction. Normal gallbladder. Adrenal glands are normal. Normal renal parenchymal enhancement. No hydronephrosis. Normal caliber abdominal aorta. Tiny fat-containing umbilical hernia. Normal lumbar spine. IMPRESSION: 1. Suggestion of a tiny amount of acute diverticulitis in the LEFT lower quadrant involving the LEFT descending colon and sigmoid colon. No drainable abscess or fluid collection. 2. Prominent prostate for a patient this age measuring 4.1 x 4.2 cm. Recommend correlation PSA. 3. No other suspicious findings. Notified Sandra Barker MD at 07/02/2023 1:31 PM.
--- NOTE | 2023-07-02 12:02 | XR_ITS ---
WS: [id number] Right foot, 3 views, 07/02/2023 Clinical Data: injury Comparison: None. Findings: No fractures or dislocations are seen. No bone destruction or erosion is noted. The joint spaces and soft tissues are normal. Impression: Negative right foot.
[2023-07-02 12:03] VITALS: RESP 18; O2SAT 99
--- NOTE | 2023-07-02 12:03 | ED_ITS ---
HPI - Abdominal Pain 2 General: Chief Complaint: Abdominal Pain Stated Complaint: abd pain, blood in stool, right swollen foot Time Seen by Provider: 07/02/23 11:58 Source: patient Mode of arrival: ambulatory Limitations: no limitations History of Present Illness: 52-year-old male states has been having left lower quadrant abdominal pains been sharp in nature has been going on for roughly 5 to 6 days. States he has had some slight red blood in his stool it is very minimal. He denies any vomiting he states his pain is currently a 6 out of 10 denies any worsening proving factors. States he is also had some right foot pain for a day he states he did have surgery on that foot before and had pain in it before. Associated Symptoms: Reports hematochezia; Denies chills, diarrhea, dysuria, fever(s), nausea and vomiting Review of Systems 2 Const: Denies: fever(s), chills, body aches or change in appetite ENMT: Denies: throat pain or dental pain Card: Denies: chest pain Resp: Denies: dyspnea GI: Reports: abdominal pain and hematochezia; Denies: nausea, vomiting or diarrhea : Denies: dysuria Musc: Reports: extremity pain; Denies: neck pain or back pain Skin/Breast: Denies: rash Neuro: Denies: headache(s) PFSH ED 2 PFSH: Medical History Migraine No pertinent family history Physical Exam 2 Const: COMMON NORMALS: no acute distress, patient oriented x3 and healthy appearing HENMT: COMMON NORMALS: normocephalic and atraumatic HEAD & SCALP: n ormocephalic and atraumatic Neck/C-Spine: COMMON NORMALS: full ROM and supple Chest: COMMONS NORMALS: normal inspection of the chest Resp: COMMON NORMALS: normal respiratory effort Cardio: COMMON NORMALS: regular rate, regular rhythm and No murmurs present (Cardio) RATE: regular rate RHYTHM: regular rhythm GI: COMMON NORMALS: Normal to inspection, nondistended, normoactive bowel sounds present, Soft to palpation and no masses PALPATION: Yes Soft to palpation and Yes Tenderness to palpation present (GI) Details: LLQ Extremity: COMMON NORMALS: normal to inspection and full ROM NARRATIVE EXTREMITY EXAM: Right foot has normal appearance nontender to touch no erythema no warmth distal pulses intact Neuro: COMMON NORMALS: patient oriented x3, moves all extremities and no focal motor deficits Psych: COMMON NORMALS: mental status grossly normal, Normal thought process present and cooperative THOUGHT PROCESS: Normal thought process present Skin: COMMON NORMALS: no rashes or lesions noted and no wounds GENERAL SKIN EXAM: no rashes or lesions noted Course 2 Vital Signs: Vital signs: Vital Signs Temperature 97.6 F 07/02/23 11:51 Pulse Rate 71 07/02/23 11:51 Respiratory Rate 18 07/02/23 12:03 Blood Pressure 138/82 07/02/23 11:51 Pulse Oximetry 99 07/02/23 12:03 Oxygen Delivery Me thod Room Air 07/02/23 12:03 MDM - Abdominal Pain Medical Decision Making Patient presents with left lower quadrant pain CT does show a diverticulitis with no abscess white count is normal we will treat with Cipro Flagyl at home I did inform him he does have enlarged prostate on his CT as well he is to follow- up with a PCP or urologist. He is return if worsening he understands agrees to plan Medical Records I reviewed the patient's medical records. Lab Data I reviewed the patient's lab results. 07/02/23 11:46 07/02/23 11:46 Labs/Radiology: Laboratory Results WBC 6.60 10^3/uL (3.29-11.43) 07/02/23 11:46 RBC 5.06 10^6/uL (3.85-5.65) 07/02/23 11:46 Hgb 15.80 g/dL (11.27-16.99) 07/02/23 11:46 Hct 47.4 % (37-53) 07/02/23 11:46 MCV 93.7 fl (82-101) 07/02/23 11:46 MCH 31.2 pg (27-33) 07/02/23 11:46 MCHC 33.3 g/dL (30-55) 07/02/23 11:46 RDW 13.6 % (12.1-15.1) 07/02/23 11:46 Plt Count 322 10^3/cmm (157-399) 07/02/23 11:46 MPV 8.8 fL (7.4-10.4) 07/02/23 11:46 Neut % (Auto) 49.7 % 07/02/23 11:46 Lymph % (Auto) 35.9 % 07/02/23 11:46 [place] % (Auto) 8.9 % 07/02/23 11:46 Eos % (Auto) 4.7 % 07/02/23 11:46 Baso % (Auto) 0.5 % 07/02/23 11:46 Neut # (Auto) 3.28 10^3/uL (1.8-7.7) 07/02/23 11:46 Lymph # (Auto) 2.4 10^3/uL (0.8-4.8) 07/02/23 11:46 [place] # (Auto) 0.6 10^3/uL (0.2-0.9) 07/02/23 11:46 Eos # (Auto) 0.3 10^3/uL (0.0-0.8) 07/02/23 11:46 Baso # (Auto) 0.0 10^3/uL (0.0-0.1) 07/02/23 11:46 Nucleated RBC % (auto) 0 % 07/02/23 11:46 Nucleated RBCs # 0.0 /100WBC 07/02/23 11:46 PT 12.40 SECONDS (12.1-14.9) 07/02/23 11:46 INR 0.90 (0.8-1.2) 07/02/23 11:46 Sodium 137 mmol/L (136-145) 07/02/23 11:46 Potassium 4.1 mmol/L (3.5-5.1) 07/02/23 11:46 Chloride 100 mmol/L (98-107) 07/02/23 11:46 Carbon Dioxide 29 mmol/L (22-29) 07/02/23 11:46 Anion Gap 12.1 (5-19) 07/02/23 11:46 BUN 7 mg/dL (6-20) 07/02/23 11:46 Creatinine 0.9 mg/dL (0.7-1.2) 07/02/23 11:46 GFR Calculation 89.3 mL/min (90-130) L 07/02/23 11:46 Glucose 112 mg/dL (65-115) 07/02/23 11:46 Calculated Osmolality 283 mOsm/kg (285-295) L 07/02/23 11:46 Calcium 9.3 mg/dL (8.5-10.5) 07/02/23 11:46 Total Bilirubin 0.4 mg/dL (0.15-1.2) 07/02/23 11:46 AST 14 U/L (0-40) 07/02/23 11:46 ALT 14 U/L (0-41) 07/02/23 11:46 Alkaline Phosphatase 51 U/L (40-130) 07/02/23 11:46 Total Protein 7.1 g/dL (6.6-8.7) 07/02/23 11:46 Albumin 4.5 g/dL (3.5-5.2) 07/02/23 11:46 Globulin 2.6 g/dL (1.3-4.6) 07/02/23 11:46 Lipase 99 U/L (13-60) H 07/02/23 11:46 All radiology interpretation(s) finalized by discharge Discharge Plan Discharge Patient Disposition: Home Clinical Impression: Diverticulitis Condition: Stable Prescriptions: New hydrocodone-acetaminophen 5-325 mg tablet 1 tab PO Q6H PRN (Reason: pain) Qty: 14 0RF metronidazole 500 mg tablet 500 mg PO Q8H 7 Days Qty: 21 0RF ciprofloxacin HCl [Cipro] 500 mg tablet 500 mg PO BID Qty: 14 0RF ondansetron 4 mg tablet,disintegrating 4 mg PO Q6H PRN (Reason: nausea and vomiting) Qty: 14 0RF No Action ibuprofen 200 mg Tablet 600 mg PO Q6H PRN (Reason: Pain) aspirin 81 mg tablet,delayed release (DR/EC) 81 mg PO DAILY Qty: 30 0RF omeprazole 20 mg capsule,delayed release(DR/EC) 20 mg PO DAILY Qty: 30 0RF Discharge Orders: Discharge ED (Routine); Ordered 07/02/23 Ordered By: Sandra Barker Discharge Diet: Advance as tolerated Discharge Activity: Resume usual activity Patient Instructions: Diverticulitis (ED), Opioid Safety Stand Alone Forms: Work/School Release Coding Level of Care Code ED Advertising Sales Assistant for Rajeev Block
[2023-07-02 12:11] LABS: Alanine Aminotransferase 14 U/L (0-41); Albumin Level 4.5 g/dL (3.5-5.2); Alkaline Phosphatase 51 U/L (40-130); Anion Gap 12.1 (5-19); Aspartate Amino Transferase 14 U/L (0-40); Blood Urea Nitrogen 7 mg/dL (6-20); Carbon Dioxide 29 mmol/L (22-29); Chloride 100 mmol/L (98-107); Globulin 2.6 g/dL (1.3-4.6); Glomerular Filtration Rate 89.3 mL/min (90-130); Glucose 112 mg/dL (65-115); Lipase 99 U/L (13-60); Osmolality Calculated 283 mOsm/kg (285-295); Potassium 4.1 mmol/L (3.5-5.1); Sodium 137 mmol/L (136-145); Total Bilirubin 0.4 mg/dL (0.15-1.2); Total Protein 7.1 g/dL (6.6-8.7)
[2023-07-02] MEDS: ondansetron 2 mg/ML SDV 2 mL 4 MG IVP (12:12)
[2023-07-02] MEDS: morphine 4 mg/mL SDV 1 mL IVP (12:13)
[2023-07-02 12:27] LABS: Calcium 9.3 mg/dL (8.5-10.5)
[2023-07-02] MEDS: iohexol 350 mg/mL 500 mL Btl (per mL) IV (13:03)
== END 2023-07-02 13:45 | disposition home or self-care (01) ==
PROVIDERS: Emergency Provider Emergency Medicine
DX: K57.92 Diverticulitis of intestine, part unspecified, without perforation or abscess without bleeding (principal); Z79.82 Long term (current) use of aspirin
CPT/HCPCS: 36415; 73630; 74177; 80053; 83690; 85025; 85610; 96374; 96375; 99285; J2270; J2405; Q9967

== ENCOUNTER 2023-07-09 11:41 | Emergency (ER) | payer OTHER, SELFPAY ==
[2023-07-09 12:00] VITALS: BP 115/72; PULSE 68; RESP 16; TEMP 36.9; O2SAT 97; BMI 27.9
[2023-07-09 12:22] VITALS: BP 117/72; PULSE 62; RESP 16; O2SAT 98
[2023-07-09 12:39] LABS: Basophils % 0.6 %; Eosinophils # 0.2 10^3/uL (0.0-0.8); Eosinophils % 3.8 %; Hematocrit 46.5 % (37-53); Lymphocytes # 2.3 10^3/uL (0.8-4.8); Lymphocytes % 36.1 %; Mean Corpuscular HGB Conc 33.8 g/dL (30-55); Mean Corpuscular Hemoglobin 31.3 pg (27-33); Mean Corpuscular Volume 92.6 fl (82-101); Mean Platelet Volume 8.6 fL (7.4-10.4); Monocytes # 0.6 10^3/uL (0.2-0.9); Monocytes % 9.1 %; Neutrophils # 3.19 10^3/uL (1.8-7.7); Neutrophils % 50.2 %; Nucleated Red Blood Cells % 0 %; Platelet Count 327 10^3/cmm (157-399); Red Blood Count 5.02 10^6/uL (3.85-5.65); Red Cell Distribution Width 13.8 % (12.1-15.1); White Blood Count 6.35 10^3/uL (3.29-11.43)
--- NOTE | 2023-07-09 12:46 | ED_ITS ---
HPI - Abdominal Pain 2 General: Chief Complaint: Abdominal Pain Stated Complaint: abd pain Time Seen by Provider: 07/09/23 12:15 Source: patient Mode of arrival: ambulatory History of Present Illness: 52-year-[facility] complaint of right lower quadrant abdominal pain he was seen 1 week ago and treated with oral antibiotics for acute diverticulitis without perforation has completed that course of antibiotics and now is having pain on the right lower quadrant appears to be related she has been throwing up low-grade subjective fever. MD elicited complaint: abdominal pain Pertinent past history: diverticulitis Onset (ago): week(s) (1) Pain Consistency: constant Location: RLQ Severity: moderate Quality: sharp Exacerbating factors: nothing Relieving factors: nothing Associated Symptoms: Reports GI cramping, nausea and poor appetite; Denies anorexia, belching, bloating, change in bowel habits, change in stool character, chills, coffee ground emesis, constipation, diarrhea, dyspepsia, dysuria, excessive flatus, fever(s), heartburn, hematochezia, hematuria, hematemesis, fecal incontinence, loose stools, melena, syncope and vomiting Review of Systems 2 Const: Denies: fever(s) or chills Card: Denies: chest pain or syncope Resp: Denies: dyspnea GI: Reports: abdominal pain, nausea and GI cramping; Denies: vomiting, hematemesis, coffee ground emesis, heartburn, diarrhea, constipation, bloating, belching, excessive flatus, fecal incontinence, change in bowel habits, change in stool character, hematochezia or melena : Denies: dysuria, urinary frequency, urinary urgency or hematuria Musc: Denies: neck pain or back pain Skin/Breast: Denies: rash PFSH ED 2 PFSH: Medical History No pertinent family history Migraine Physical Exam 2 Const: GENERAL APPEARANCE: cooperative and comfortable O RIENTATION/CONSCIOUSNESS: Yes awake, Yes oriented to person, Yes oriented to place and Yes oriented to time HENMT: COMMON NORMALS: normocephalic, atraumatic and hearing grossly normal bilaterally HEAD & SCALP: normocephalic and atraumatic Resp: COMMON NORMALS: normal respiratory effort, No retractions, No use of accessory muscles and clear to auscultation bilaterally AUSCULTATION: clear to auscultation bilaterally Cardio: COMMON NORMALS: regular rate, regular rhythm and No murmurs present (Cardio) RATE: regular rate RHYTHM: regular rhythm GI: COMMON NORMALS: No hepatosplenomegaly present AUSCULTATION: Yes normoactive bowel sounds PALPATION: Yes Tenderness to palpation present (GI) Details: RLQ, No Guarding due to palpation present (GI) and Yes No hepatosplenomegaly present Extremity: COMMON NORMALS: normal to inspection, capillary refill normal, no clubbing, cyanosis or edema, no calf tenderness and no pedal edema Neuro: SENSORIUM/ORIENTATION: Yes oriented to person, Yes oriented to place and Yes oriented to time Skin: COMMON NORMALS: no rashes or lesions noted GENERAL SKIN EXAM: no rashes or lesions noted Course 2 Vital Signs: Vital signs: Vital Signs Temperature 98.4 F 07/09/23 12:00 Pulse Rate 71 07/09/23 15:26 Respiratory Rate 16 07/09/23 12:22 Blood Pressure 146/91 07/09/23 15:26 Pulse Oximetry 98 07/09/23 15:26 Oxygen Delivery Me thod Room Air 07/09/23 14:35 MDM - Abdominal Pain Medical Decision Making Labs and imaging reviewed no leukocytosis no acute diverticulitis abscess or acute appendicitis. His lipase is slightly elevated but he has no left upper quadrant abdominal pain likely from poor decreased oral intake. Recommend clear liquid diet 24 to 48 hours and advance as tolerated promethazine as needed follow-up as needed Medical Records I reviewed the patient's medical records. Lab Data I reviewed the patient's lab results. 07/09/23 12:21 07/09/23 12:21 Labs/Radiology: Radiology Impressions Abdomen/Pelvis CT 07/09/23 12:53 IMPRESSION: No acute findings. Laboratory Results WBC 6.35 10^3/uL (3.29-11.43) 07/09/23 12:21 RBC 5.02 10^6/uL (3.85-5.65) 07/09/23 12:21 Hgb 15.70 g/dL (11.27-16.99) 07/09/23 12:21 Hct 46.5 % (37-53) 07/09/23 12:21 MCV 92.6 fl (82-101) 12/26/23 12:21 MCH 31.3 pg (27-33) 07/09/23 12:21 MCHC 33.8 g/dL (30-55) 07/09/23 12:21 RDW 13.8 % (12.1-15.1) 07/09/23 12:21 Plt Count 327 10^3/cmm (157-399) 07/09/23 12:21 MPV 8.6 fL (7.4-10.4) 07/09/23 12:21 Neut % (Auto) 50.2 % 07/09/23 12:21 Lymph % (Auto) 36.1 % 07/09/23 12:21 [place] % (Auto) 9.1 % 07/09/23 12:21 Eos % (Auto) 3.8 % 07/09/23 12:21 Baso % (Auto) 0.6 % 07/09/23 12:21 Neut # (Auto) 3.19 10^3/uL (1.8-7.7) 07/09/23 12:21 Lymph # (Auto) 2.3 10^3/uL (0.8-4.8) 07/09/23 12:21 [place] # (Auto) 0.6 10^3/uL (0.2-0.9) 07/09/23 12:21 Eos # (Auto) 0.2 10^3/uL (0.0-0.8) 07/09/23 12:21 Baso # (Auto) 0.0 10^3/uL (0.0-0.1) 07/09/23 12:21 Nucleated RBC % (auto) 0 % 07/09/23 12:21 Nucleated RBCs # 0.0 /100WBC 07/09/23 12:21 Sodium 138 mmol/L (136-145) 07/09/23 12:21 Potassium 4.2 mmol/L (3.5-5.1) 07/09/23 12:21 Chloride 101 mmol/L (98-107) 07/09/23 12:21 Carbon Dioxide 27 mmol/L (22-29) 07/09/23 12:21 Anion Gap 14.2 (5-19) 07/09/23 12:21 BUN 7 mg/dL (6-20) 07/09/23 12:21 Creatinine 1.0 mg/dL (0.7-1.2) 07/09/23 12:21 GFR Calculation 79.1 mL/min (90-130) L 07/09/23 12:21 Glucose 119 mg/dL (65-115) H 07/09/23 12:21 Calculated Osmolality 285 mOsm/kg (285-295) 07/09/23 12:21 Calcium 8.8 mg/dL (8.5-10.5) 07/09/23 12:21 Total Bilirubin 0.2 mg/dL (0.15-1.2) 07/09/23 12:21 AST 25 U/L (0-40) 07/09/23 12:21 ALT 30 U/L (0-41) 07/09/23 12:21 Alkaline Phosphatase 45 U/L (40-130) 07/09/23 12:21 Total Protein 7.0 g/dL (6.6-8.7) 07/09/23 12:21 Albumin 4.4 g/dL (3.5-5.2) 07/09/23 12:21 Globulin 2.6 g/dL (1.3-4.6) 07/09/23 12:21 Lipase 156 U/L (13-60) H 07/09/23 12:21 Urine Color Yellow (Yellow) 07/09/23 13:34 Urine Appearance Clear (CLEAR) 07/09/23 13:34 Urine pH 6 (5-7) 07/09/23 13:34 Ur Specific [place] 1.015 (1.005-1.030) 07/09/23 13:34 Urine Protein Neg (Negative) 07/09/23 13:34 Urine Glucose (UA) Norm (Normal) 07/09/23 13:34 Urine Ketones Negative (Negative) 07/09/23 13:34 Urine Blood Neg (Negative) 07/09/23 13:34 Urine Nitrate Negative (Negative) 07/09/23 13:34 Urine Bilirubin Neg (Negative) 07/09/23 13:34 Urine Urobilinogen Norm mg/dL (Negative) 07/09/23 13:34 Ur Leukocyte Esterase Trace (Negative) H 07/09/23 13:34 Urine RBC 0-4 /hpf (0-2) H 07/09/23 13:34 Urine WBC 0-4 /hpf (0-5) H 07/09/23 13:34 Ur Squamous Epith Cells 0-4 /hpf (0-5) H 07/09/23 13:34 Amorphous Sediment Not Reportable 07/09/23 13:34 Urine Bacteria Trace /hpf (NONE) 07/09/23 13:34 Urine Mucus 1+ /hpf 07/09/23 13:34 All radiology interpretation(s) finalized by discharge Discharge Plan Discharge Patient Disposition: Home Clinical Impression: Abdominal pain Condition: Stable Prescriptions: New promethazine 25 mg tablet 25 mg PO Q6H PRN (Reason: nausea and vomiting) Qty: 20 0RF No Action ibuprofen 200 mg Tablet 600 mg PO Q6H PRN (Reason: Pain) omeprazole 20 mg capsule,delayed release(DR/EC) 20 mg PO DAILY Qty: 30 0RF ondansetron 4 mg tablet,disintegrating 4 mg PO Q6H PRN (Reason: nausea and vomiting) Qty: 14 0RF Discharge Orders: Discharge ED (Routine); Ordered 07/09/23 Ordered By: Gilson Gabriel Discharge Diet: Clear Liquid Discharge Activity: Increase activity as tolerated Patient Instructions: Abdominal Pain (ED), Opioid Safety, Pain Management Activity Restrictions/Additional Instructions: Thank you for choosing [facility] for your healthcare needs today. Please realize this is an emergency room and that we are providing you with a medical screening exam and this may not be complete and all inclusive of all the testing and or work up that you may need to determine your ailment or severity of your illness. It is very important that you follow up as instructed or that you return to the Emergency Department should you have concerns or if your condition changes or worsens in any way. You are seen today for abdominal pain laboratory test showed a slight elevation in lipase but CT was unremarkable. Recommend clear liquid diet for next 24 to 48 hours and advance as tolerated use antiemetics as needed Coding Level of Care Code ED Final Application Reviewer for Rajeev Block
--- NOTE | 2023-07-09 12:53 | CTR_ITS ---
PROCEDURE INFORMATION: Exam: CT Abdomen And Pelvis Without Contrast Exam date and time: 07/09/2023 1:03 PM Age: 52 years old Clinical indication: Abdominal pain; Generalized TECHNIQUE: Imaging protocol: Computed tomography of the abdomen and pelvis without contrast. Radiation optimization: All CT scans at this facility use at least one of these dose optimization techniques: automated exposure control; mA and/or kV adjustment per patient size (includes targeted exams where dose is matched to clinical indication); or iterative reconstruction. REPORTING DATA: Count of CT and Cardiac NM exams in prior 12 months: This patient has received 2 known CTs and 0 known cardiac nuclear medicine studies in the 12 months prior to the current study. COMPARISON: CT abdomen pelvis w con* [id number] 07/02/2023 1:00 PM RADIATION DOSE METRICS: Total DLP (mGy-cm): 505.01 FINDINGS: Liver: Normal. No mass. Gallbladder and bile ducts: Normal. No calcified stones. No ductal dilation. Pancreas: Normal. No ductal dilation. Spleen: Normal. No splenomegaly. Adrenal glands: Normal. No mass. Kidneys and ureters: Normal. No hydronephrosis. Stomach and bowel: Unremarkable. No obstruction. No mucosal thickening. Appendix: No evidence of appendicitis. Intraperitoneal space: Unremarkable. No free air. No significant fluid collection. Vasculature: Unremarkable. No abdominal aortic aneurysm. Lymph nodes: Unremarkable. No enlarged lymph nodes. Urinary bladder: Unremarkable as visualized. Reproductive: Unremarkable as visualized. Bones/joints: Unremarkable. No acute fracture. Soft tissues: Unremarkable. CT/CT abdomen pelvis wo con [id number] IMPRESSION: No acute findings.
[2023-07-09 12:56] LABS: Alanine Aminotransferase 30 U/L (0-41); Albumin Level 4.4 g/dL (3.5-5.2); Alkaline Phosphatase 45 U/L (40-130); Anion Gap 14.2 (5-19); Aspartate Amino Transferase 25 U/L (0-40); Blood Urea Nitrogen 7 mg/dL (6-20); Calcium 8.8 mg/dL (8.5-10.5); Carbon Dioxide 27 mmol/L (22-29); Chloride 101 mmol/L (98-107); Globulin 2.6 g/dL (1.3-4.6); Glomerular Filtration Rate 79.1 mL/min (90-130); Glucose 119 mg/dL (65-115); Lipase 156 U/L (13-60); Osmolality Calculated 285 mOsm/kg (285-295); Potassium 4.2 mmol/L (3.5-5.1); Sodium 138 mmol/L (136-145); Total Bilirubin 0.2 mg/dL (0.15-1.2)
[2023-07-09 13:35] VITALS: BP 115/73; O2SAT 99
[2023-07-09 14:11] LABS: Add Urine Microscopic? YES; Bilirubin Urine Neg (Negative); Blood Urine Neg (Negative); Glucose Urine UA Norm (Normal); Ketones Urine Negative (Negative); Leukocyte Esterase Urine Trace (Negative); Nitrate Urine Negative (Negative); Protein Urine Neg (Negative); Specific Gravity, Urine 1.015 (1.005-1.030); Urine Appearance Clear (CLEAR); Urine Color Yellow (Yellow); Urobilinogen Urine Norm (Negative); pH Urine 6 (5-7)
[2023-07-09 14:12] LABS: Add Urine Culture? No; Bacteria Urine TRACE /hpf; Mucus Urine 1+ /hpf; RBC Urine 0-4 /hpf (0-2); Squamous Epithelial Cell Urine 0-4 /hpf (0-5); WBC Urine 0-4 /hpf (0-5)
[2023-07-09 14:35] VITALS: BP 111/73; PULSE 87; O2SAT 98
[2023-07-09 15:26] VITALS: BP 146/91; PULSE 71; O2SAT 98
== END 2023-07-09 15:27 | disposition home or self-care (01) ==
PROVIDERS: Emergency Medicine; Emergency Provider Family Medicine
DX: R10.31 Right lower quadrant pain (principal)
CPT/HCPCS: 74176; 80053; 81001; 83690; 85025; 87040; 99284

== ENCOUNTER 2024-03-31 08:12 | Emergency (ER) | payer SELFPAY ==
[2024-03-31 08:26] VITALS: BP 149/97; PULSE 74; RESP 18; TEMP 36.8; O2SAT 98; BMI 25.1
--- NOTE | 2024-03-31 08:47 | ED_ITS ---
HPI - Headache 2 General: Chief Complaint: Headache Stated Complaint: Blood in stool, migraine Time Seen by Provider: 03/31/24 08:27 History of Present Illness: 53-year-old man who presents emergency r oom with a migraine headache has been present related to. Some nausea but no vomiting. He also complains of hemorrhoids. He says he has been having pain and some rectal bleeding. No fevers. No altered mental status. No chest pain. No shortness of breath. No abdominal pain. He says he does not have a primary. He does not have insurance. Discussed that if he needs treatment of hemorrhoids he will need to see general surgeon. We are checking basic lab work to make sure he does not become anemic. Treating his headache. Related Data Home Medications Medication Instructions Recorded Confirmed ibuprofen 200 mg tablet 600 mg PO Q6H PRN Pain 05/01/23 07/09/23 Previous Rx's Medication Instructions Recorded omeprazole 20 mg capsule,delayed 20 mg PO DAILY #30 caps 05/01/23 release ondansetron 4 mg disintegrating 4 mg PO Q6H PRN nausea and 07/02/23 tablet vomiting #14 tabs promethazine 25 mg tablet 25 mg PO Q6H PRN nausea and 07/09/23 vomiting #20 tabs diclofenac sodium 50 mg 50 mg PO BID PRN pain #14 tabs 03/31/24 tablet,delayed release hydrocortisone 1 %-pramoxine 1 % 1 applic WV TID PRN hemorrhoids 03/31/24 rectal foam (Proctofoam HC) #10 grams Allergies Allergy/AdvReac Type Severity Reaction Status Date / Time No Known Allergies Allergy Verified 07/02/23 11:50 Review of Systems 2 Narrative: Constitutional symptoms: Negative except as documented in HPI. Skin symptoms: Negative except as documented in HPI. Eye symptoms: Negative except as documented in HPI. ENMT symptoms: Negative except as documented in HPI. Respiratory symptoms: Negative except as documented in HPI. Cardiovascular symptoms: Negative except as documented in HPI. Gastrointestinal symptoms: Negative except as documented in HPI. Genitourinary symptoms: Negative except as documented in HPI. Musculoskeletal symptoms: Negative except as documented in HPI. Neurologic symptoms: Negative except as documented in HPI. Psychiatric symptoms: Negative except as documented in HPI. Endocrine symptoms: Negative except as documented in HPI. PFSH ED 2 PFSH: Medical History No pertinent family history Migraine Physical Exam 2 Narrative: EXAM NARRATIVE: General: Alert, no acute distress. Skin: Warm, dry. Head: Normocephalic, atraumatic. Neck: Supple, trachea midline. Eye: Extraocular movements are intact. Ears, nose, mouth and throat: mucosa moist. Cardiovascular: Regular, Normal peripheral perfusion. Respiratory: Lungs are clear to auscultation, respirations are non-labored, breath sounds are equal, Symmetrical chest wall expansion. Gastrointestinal: Soft, Nontender, Non distended Musculoskeletal: Normal ROM, no deformity. Neurological: Alert and oriented, No focal neurological deficit observed. Psychiatric: Cooperative, appropriate mood & affect. Course 2 Vital Signs: Vital signs: Vital Signs Temperature 98.2 F 03/31/24 08:26 Pulse Rate 69 03/31/24 09:21 Respiratory Rate 16 03/31/24 09:21 Blood Pressure 141/95 03/31/24 09:21 Pulse Oximetry 98 03/31/24 09:21 Oxygen Delivery Me thod Room Air 03/31/24 08:26 MDM - Headache Medical Decision Making Medical decision making: Differential diagnosis including but not limited to and based on the above HPI, review of systems and physical exam: Patient has migraine headache. Has history. Treating this. Checking basic lab work because he has been having some rectal bleeding. Orders placed to evaluate differential diagnosis based on the above differential, HPI and physical exam Lab Review: Laboratory results were reviewed and interpreted by myself the emergency room physician. Lab work is unremarkable. No leukocytosis. No anemia. No renal failure. I reviewed the patient's medical record. Reexamination: Patient remained stable. No increased work of breathing. No altered mental status. No focal motor deficits. Assessment and plan: Migraine headache Hemorrhoids ? IV Benadryl, Compazine, Norflex, Zofran and Toradol - Discharged home - Discussed plan with patient. Answered any questions. - Evaluation and treatment of this problem were appropriate in the emergency setting. Lab Data 03/31/24 08:42 03/31/24 08:42 Laboratory Results WBC 5.20 10^3/uL (3.29-11.43) 03/31/24 08:42 RBC 4.67 10^6/uL (3.85-5.65) 03/31/24 08:42 Hgb 14.90 g/dL (11.27-16.99) 03/31/24 08:42 Hct 44.4 % (37-53) 03/31/24 08:42 MCV 95.1 fl (82-101) 03/31/24 08:42 MCH 31.9 pg (27-33) 03/31/24 08:42 MCHC 33.6 g/dL (30-55) 03/31/24 08:42 RDW 13.7 % (12.1-15.1) 03/31/24 08:42 Plt Count 234 10^3/cmm (157-399) 03/31/24 08:42 MPV 8.7 fL (7.4-10.4) 03/31/24 08:42 Neut % (Auto) 48.1 % 03/31/24 08:42 Lymph % (Auto) 40.4 % 03/31/24 08:42 Dickinson % (Auto) 8.8 % 03/31/24 08:42 Eos % (Auto) 2.3 % 03/31/24 08:42 Baso % (Auto) 0.2 % 03/31/24 08:42 Neut # (Auto) 2.50 10^3/uL (1.8-7.7) 03/31/24 08:42 Lymph # (Auto) 2.1 10^3/uL (0.8-4.8) 03/31/24 08:42 Dickinson # (Auto) 0.5 10^3/uL (0.2-0.9) 03/31/24 08:42 Eos # (Auto) 0.1 10^3/uL (0.0-0.8) 03/31/24 08:42 Baso # (Auto) 0.0 10^3/uL (0.0-0.1) 03/31/24 08:42 Nucleated RBC % (auto) 0 % 03/31/24 08:42 Nucleated RBCs # 0.0 /100WBC 03/31/24 08:42 Sodium 141 mmol/L (136-145) 03/31/24 08:42 Potassium 4.1 mmol/L (3.5-5.1) 03/31/24 08:42 Chloride 105 mmol/L (98-107) 03/31/24 08:42 Carbon Dioxide 26 mmol/L (22-29) 03/31/24 08:42 Anion Gap 14.1 (5-19) 03/31/24 08:42 BUN 8 mg/dL (6-20) 03/31/24 08:42 Creatinine 0.9 mg/dL (0.7-1.2) 03/31/24 08:42 GFR Calculation 89.0 mL/min (90-130) L 03/31/24 08:42 Glucose 110 mg/dL (65-115) 03/31/24 08:42 Calculated Osmolality 291 mOsm/kg (285-295) 03/31/24 08:42 Calcium 8.2 mg/dL (8.5-10.5) L 03/31/24 08:42 Total Bilirubin 0.3 mg/dL (0.15-1.2) 03/31/24 08:42 AST 18 U/L (0-40) 03/31/24 08:42 ALT 24 U/L (0-41) 03/31/24 08:42 Alkaline Phosphatase 46 U/L (40-130) 03/31/24 08:42 Total Protein 6.7 g/dL (6.6-8.7) 03/31/24 08:42 Albumin 4.1 g/dL (3.5-5.2) 03/31/24 08:42 Globulin 2.6 g/dL (1.3-4.6) 03/31/24 08:42 All radiology interpretation(s) finalized by discharge Discharge Plan Discharge Patient Disposition: Home Clinical Impression: Migraine, Hemorrhoids Condition: Stable Prescriptions: New diclofenac sodium 50 mg tablet,delayed release (DR/EC) 50 mg PO BID PRN (Reason: pain) Qty: 14 0RF Proctofoam HC 1-1 % foam 1 applic WV TID PRN (Reason: hemorrhoids) Qty: 10 0RF No Action promethazine 25 mg tablet 25 mg PO Q6H PRN (Reason: nausea and vomiting) Qty: 20 0RF ibuprofen 200 mg Tablet 600 mg PO Q6H PRN (Reason: Pain) omeprazole 20 mg capsule,delayed release(DR/EC) 20 mg PO DAILY Qty: 30 0RF ondansetron 4 mg tablet,disintegrating 4 mg PO Q6H PRN (Reason: nausea and vomiting) Qty: 14 0RF Discharge Orders: Discharge ED (Routine); Ordered 03/31/24 Ordered By: Lauren Cedeno Referrals: Ming Mcgarry MD [Physician] - (If you continue to have trouble with hemorrhoids please call for an appointment with general surgery.) Discharge Diet: Usual diet Discharge Activity: Increase activity as tolerated Patient Instructions: Hemorrhoids (ED), Migraine Headache (ED) Activity Restrictions/Additional Instructions: Thank you for choosing [facility] for your healthcare needs today. Please realize this is an emergency room and that we are providing you with a medical screening exam and this may not be complete and all inclusive of all the testing and or work up that you may need to determine your ailment or severity of your illness. You have been screened and evaluated and felt safe for discharge. Health conditions do change or evolve sometimes and as such it is important that you follow up with your Primary Doctor to be re checked, 3-5 days is a general good time frame for follow up. You are always welcome to return to the ED for re assessment if your symptoms are worsening or you have new concerns Coding Level of Care Code ED Maintenance Mechanic Engine for Rajeev Block
[2024-03-31 08:48] LABS: Basophils % 0.2 %; Eosinophils # 0.1 10^3/uL (0.0-0.8); Eosinophils % 2.3 %; Hematocrit 44.4 % (37-53); Lymphocytes # 2.1 10^3/uL (0.8-4.8); Lymphocytes % 40.4 %; Mean Corpuscular HGB Conc 33.6 g/dL (30-55); Mean Corpuscular Hemoglobin 31.9 pg (27-33); Mean Corpuscular Volume 95.1 fl (82-101); Mean Platelet Volume 8.7 fL (7.4-10.4); Monocytes # 0.5 10^3/uL (0.2-0.9); Monocytes % 8.8 %; Neutrophils % 48.1 %; Nucleated Red Blood Cells % 0 %; Platelet Count 234 10^3/cmm (157-399); Red Blood Count 4.67 10^6/uL (3.85-5.65); Red Cell Distribution Width 13.7 % (12.1-15.1)
[2024-03-31 09:08] LABS: Alanine Aminotransferase 24 U/L (0-41); Albumin Level 4.1 g/dL (3.5-5.2); Alkaline Phosphatase 46 U/L (40-130); Anion Gap 14.1 (5-19); Aspartate Amino Transferase 18 U/L (0-40); Blood Urea Nitrogen 8 mg/dL (6-20); Calcium 8.2 mg/dL (8.5-10.5); Carbon Dioxide 26 mmol/L (22-29); Chloride 105 mmol/L (98-107); Creatinine Clr Calc Pharmacy 103.7669; Globulin 2.6 g/dL (1.3-4.6); Glucose 110 mg/dL (65-115); Osmolality Calculated 291 mOsm/kg (285-295); Potassium 4.1 mmol/L (3.5-5.1); Sodium 141 mmol/L (136-145); Total Bilirubin 0.3 mg/dL (0.15-1.2); Total Protein 6.7 g/dL (6.6-8.7)
[2024-03-31] MEDS: diphenhydrAMINE 50 mg/mL SDV 1mL 25 MG IVP (09:14)
[2024-03-31] MEDS: ketorolac 30 mg/mL INJ IVP (09:15)
[2024-03-31] MEDS: prochlorperazine 10 mg/2 mL Inj IVP (09:15)
[2024-03-31] MEDS: orphenadrine 30 mg/mL Inj 2 mL 60 MG IVP (09:15)
[2024-03-31] MEDS: ondansetron 2 mg/ML SDV 2 mL 4 MG IVP (09:15)
[2024-03-31 09:21] VITALS: BP 141/95; PULSE 69; RESP 16; O2SAT 98
[2024-03-31 10:03] VITALS: BP 131/89; PULSE 62; RESP 16; O2SAT 98
== END 2024-03-31 10:06 | disposition home or self-care (01) ==
PROVIDERS: Emergency Provider Emergency Medicine
DX: G43.909 Migraine, unspecified, not intractable, without status migrainosus (principal); K64.9 Unspecified hemorrhoids
CPT/HCPCS: 36415; 80053; 85025; 96374; 96375; 99284; J0780; J1200; J1885; J2360; J2405

== ENCOUNTER 2024-07-28 14:12 | Emergency (ER) | payer SELFPAY ==
[2024-07-28 14:21] VITALS: BP 151/94; PULSE 77; RESP 17; TEMP 36.3; O2SAT 97; BMI 25.8
--- NOTE | 2024-07-28 15:12 | XRR_ITS ---
PROCEDURE INFORMATION: Exam: XR Left Shoulder Exam date and time: 07/28/2024 3:16 PM Age: 53 years old Clinical indication: Pain; Shoulder; Left; Additional info: Shoulder pain TECHNIQUE: Imaging protocol: Radiologic exam of the left shoulder. Views: 2 or more views. COMPARISON: CR XR shoulder LT min 2V* [id number] 04/02/2020 3:55 PM FINDINGS: Bones/joints: Normal. Soft tissues: Normal. XR/XR shoulder LT min 2V* [id number] IMPRESSION: No acute findings.
--- NOTE | 2024-07-28 15:59 | CTR_ITS ---
PROCEDURE INFORMATION: Exam: CT Abdomen And Pelvis With Contrast Exam date and time: 07/28/2024 4:23 PM Age: 53 years old Clinical indication: Abdominal pain; Generalized; Additional info: Abd pain TECHNIQUE: Imaging protocol: Computed tomography of the abdomen and pelvis with contrast. Radiation optimization: All CT scans at this facility use at least one of these dose optimization techniques: automated exposure control; mA and/or kV adjustment per patient size (includes targeted exams where dose is matched to clinical indication); or iterative reconstruction. Contrast material: OMNIPAQUE 350; Contrast volume: 100 ml; Contrast route: INTRAVENOUS (IV); COMPARISON: CT abdomen pelvis wo con [id number] 07/09/2023 1:03 PM RADIATION DOSE METRICS: Total DLP (mGy-cm): 635.13 FINDINGS: Liver: Normal. No mass. Gallbladder and biliary ducts: Normal. No calcified stones. No ductal dilation. Pancreas: Normal. No ductal dilation. Spleen: Normal. No splenomegaly. Adrenal glands: Normal. No mass. Kidneys and ureters: Normal. No hydronephrosis. Stomach and bowel: Unremarkable. No obstruction. No mucosal thickening. Appendix: No evidence of appendicitis. Intraperitoneal space: Unremarkable. No free air. No significant fluid collection. Vasculature: Unremarkable. No abdominal aortic aneurysm. Lymph nodes: Unremarkable. No enlarged lymph nodes. Urinary bladder: Unremarkable as visualized. Reproductive: Unremarkable as visualized. Bones/joints: No acute fracture. Soft tissues: Unremarkable. CT/CT abdomen pelvis w con* [id number] IMPRESSION: No acute findings.
[2024-07-28 16:01] VITALS: BP 131/83; O2SAT 96
[2024-07-28 16:05] LABS: Basophils % 0.4 %; Eosinophils # 0.3 10^3/uL (0.0-0.8); Eosinophils % 3.6 %; Hematocrit 48.9 % (37-53); Lymphocytes # 2.8 10^3/uL (0.8-4.8); Lymphocytes % 34.5 %; Mean Corpuscular HGB Conc 33.3 g/dL (30-55); Mean Platelet Volume 9.1 fL (7.4-10.4); Monocytes # 0.7 10^3/uL (0.2-0.9); Monocytes % 8.5 %; Neutrophils # 4.27 10^3/uL (1.8-7.7); Neutrophils % 52.8 %; Nucleated Red Blood Cells % 0 %; Platelet Count 287 10^3/cmm (157-399); Red Blood Count 5.26 10^6/uL (3.85-5.65); Red Cell Distribution Width 12.6 % (12.1-15.1); White Blood Count 8.09 10^3/uL (3.29-11.43)
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
[2024-07-28 16:21] LABS: INR 0.82 (0.8-1.2)
[2024-07-28 16:26] LABS: Alanine Aminotransferase 12 U/L (0-41); Albumin Level 4.5 g/dL (3.5-5.2); Alkaline Phosphatase 43 U/L (40-130); Anion Gap 12.1 (5-19); Aspartate Amino Transferase 12 U/L (0-40); Blood Urea Nitrogen 7 mg/dL (6-20); Calcium 9.3 mg/dL (8.5-10.5); Carbon Dioxide 29 mmol/L (22-29); Chloride 101 mmol/L (98-107); Creatinine Clr Calc Pharmacy 105.0129; Globulin 2.9 g/dL (1.3-4.6); Glucose 82 mg/dL (65-115); Lipase 52 U/L (13-60); Osmolality Calculated 283 mOsm/kg (285-295); Potassium 4.1 mmol/L (3.5-5.1); Sodium 138 mmol/L (136-145); Total Bilirubin 0.2 mg/dL (0.15-1.2); Total Protein 7.4 g/dL (6.6-8.7)
[2024-07-28] MEDS: iohexol 350 mg/mL 500 mL Btl (per mL) IV (16:26)
[2024-07-28 17:25] VITALS: BP 120/80; PULSE 65; O2SAT 97
--- NOTE | 2024-08-03 07:23 | DCPLANNER ---
message sent to General surgery for follow up on GI Bleed-
== END 2024-07-28 17:34 | disposition home or self-care (01) ==
PROVIDERS: Emergency Provider Emergency Medicine
DX: K92.2 Gastrointestinal hemorrhage, unspecified (principal); M25.512 Pain in left shoulder
CPT/HCPCS: 73030; 74177; 80053; 83690; 85025; 85610; 99285

== ENCOUNTER 2024-12-02 10:33 | Outpatient (CLI) | payer OTHER, SELFPAY ==
--- NOTE | 2024-12-02 11:15 | XR_ITS ---
WS: [id number] Left shoulder, 3 views, 12/02/2024 Clinical Data: OSTEOARTHRITIS L SHOULDER Comparison: Left shoulder, 07/28/2024 Findings: No fractures or dislocations are seen. The AC joint is normal. The adjacent left clavicle, left scapula and ribs are normal. The soft tissues are unremarkable. XR/XR shoulder LT min 2V* [id number] Impression: Negative left shoulder.
--- NOTE | 2024-12-02 11:15 | XR_ITS ---
WS: [id number] Right knee, AP and lateral views, 12/02/2024 Clinical Data: OSTEOARTHRITIS R KNEE Comparison: None. Findings: No fractures or dislocations are seen. The joint spaces are normal. The patella is intact. The soft tissues are unremarkable. XR/XR knee RT 1-2V [id number] Impression: Negative right knee.
== END 2024-12-02 10:34 | disposition home or self-care (01) ==
PROVIDERS: Visit Provider Family Medicine
DX: Z02.71 Encounter for disability determination (principal)
CPT/HCPCS: 73030; 73560

== ENCOUNTER 2025-03-09 11:44 | Emergency (ER) | payer MEDICAID, SELFPAY ==
--- OUTSIDE RECORDS SUMMARY | 2025-03-09 11:48 | XMS_ITS | Encounter Summary ---
Author Organization [facility] Address [address] [place] [address] Care Team Providers Care Presidential Helicopter Crew Chief Name Role Phone Garrett Bahena MD Primary Care Provider [phone] Encounter Details Date Type Department Care Team (Late st Contact Info) Description 03/02/2025 External Device Data [facility] ABSTRACTION Provider, Abstract NO ADDRESS ON FILE Social History Tobacco Use Types Packs/Day Years Used Date Smoking Tobacco: Every Day Cigarettes Smokeless Tobacco: Never Alcohol Use Standard Drinks/Week Comments Yes 0 (1 standard drink = 0.6 oz pur e alcohol) Sex and Gender Information Value Date Recorded Sex Assigned at Not on file 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
--- OUTSIDE RECORDS SUMMARY | 2025-03-09 11:48 | XMS_ITS | Clinical Summary ---
Author Organization [facility] Address [address] [facility] Attn: [place] [address] Care Team Providers Care Implementation Engineer Name Role Phone Garrett Bahena MD Primary Care Provider [phone] Allergies No known active allergies Medications traMADol (ULTRAM) 50 mg tabletIndication s:Acute bilateral lower abdominal pain Take 1 Tablet (50 mg) by mouth every 8 hours as needed for Pain. 20 Tablet 10/16/2024 Active Active Problems Problem Noted Date Diagnosed Date Tobacco use 10/14/2015 Encounters Date Type Department Care Team Description 03/02/2025 External Device Data [facility] ABSTRACTION Provider, Abstract 12/15/2024 External Device Data [facility] ABSTRACTION Provider, Abstract 12/10/2024 Abstract [facility] [address] [place] [address] Provider, Abstract from Last 3 Months Family History Medical History Relation Name Comments Healthy Brother Healthy Daughter Other Father Healthy Maternal Grandfather Heart Disease Maternal Grandmother Diabetes Mother Heart Disease Paternal Grandfather Other Paternal Grandmother Healthy Sister 1 Healthy Sister 2 Healthy Son 1 Healthy Son 2 Relation Name Status Comments Brother Alive Daughter Alive Father Alive Maternal Grandfather Alive Maternal Grandmother Mother Paternal Grandfather Paternal Grandmother Sister 1 Alive Sister 2 Alive Son 1 Alive Son 2 Alive Social History Tobacco Use Types Packs/Day Years Used Date Smoking Tobacco: Every Day Cigarettes Smokeless Tobacco: Never Tobacco Cessation:Ready to Q uit: No; Counseling Given: Yes Alcohol Use Standard Drinks/Week Comments Yes 0 (1 standard drink = 0.6 oz pur e alcohol) Sex and Gender Information Value Date Recorded Sex Assigned at Not on file 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 Gender Identity Not on file Sexual Orientation Not on file Last Filed Vital Signs Vital Sign Reading Time Taken Comments Blood Pressure 130/80 10/06/2024 1:18 PM CDT Pulse 88 10/06/2024 1:18 PM CDT Temperature 36.6 C (97.8 F) 10/06/2024 1:18 PM CDT Respiratory Rate 18 10/06/2024 1:18 PM CDT Oxygen Saturation 97% 10/06/2024 1:18 PM CDT Inhaled Oxygen Concentration - - Weight 85.7 kg (189 lb) 10/06/2024 1:18 PM CDT Height 175.3 cm (5' 9 ) 10/06/2024 1:18 PM CDT Body Mass Index 27.91 10/06/2024 1:18 PM CDT Plan of Treatment Health Maintenance Due Date Last Done Comments Pre-Diabetes and Diabetes Screening 1972 DTAP/TDAP/TD VACCINES (1 - Tdap) 1991 HEPATITIS B VACCINES (1 of 3 - 19+ 3-dose series) 09/1991 COLORECTAL SCREENING 2017 Colorectal Cancer Screening 2017 FIT-DNA Q 3 years 2017 FIT/FOBT Q 1 year 2017 Flex Sig/CT Colonography Q 5 years 2017 ZOSTER VACCINE (1 of 2) 2022 Preventative Visit- Commercial 07/15/2024 INFLUENZA VACCINE (#1) 2025 10/02/2024 Insurance [employer] INDIVIDUAL EXCHANGE [id number] Care Teams Implementation Engineer Relationship Specialty Start Date End Date Garrett Bahena MD [address] [id number] PCP - General Family Practice 09/14/24
--- NOTE | 2025-03-09 12:03 | XR_ITS ---
WS: [id number] Exam: XR chest 1V portable [id number] Date/Time of Exam: 03/09/2025 12:16 PM Reason For Exam: dyspnea/cough Comparison 05/01/2023. Lungs are fully inflated and clear. Normal cardiomediastinal silhouette. No pleural effusion. Bony structures are intact. XR/XR chest 1V portable [id number] IMPRESSION: 1. Normal chest.
--- NOTE | 2025-03-09 12:03 | ECG_ITS ---
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 Measurements Intervals Douglass Rate: 74 P: 67 SC: 147 QRS: 100 QRSD: 108 T: 31 QT: 400 QTc: 444 Interpretive Statements SINUS RHYTHM BORDERLINE RIGHT AXIS DEVIATION [QRS AXIS > 90] INTERPRETATION BASED ON A DEFAULT AGE OF 40 YEARS Compared to ECG 05/01/2023 16:44:28 No significant changes Electronically Signed On 03-09-2025 18:07:21 CDT by Anthony Barros M.D. [email or web address]
[2025-03-09 12:12] VITALS: BP 152/95; PULSE 85; RESP 16; TEMP 36.4; O2SAT 98; BMI 23.6
[2025-03-09 13:01] VITALS: BP 144/89; PULSE 79; O2SAT 96
--- NOTE | 2025-03-09 13:04 | XR_ITS ---
WS: [email or web address] Exam: XR lumbar spine 2-3V* [id number] Date/Time of Exam: 03/09/2025 1:15 PM Reason For Exam: back pain/fall DLP: Comparison 02/07/2023. . No fracture or dislocation. Mild spondylosis. There is straightening. Posterior elements are intact. No significant change. XR/XR lumbar spine 2-3V* [id number] IMPRESSION: 1. Mild degenerative changes and straightening. 2. No fracture or malalignment.
[2025-03-09 13:05] LABS: Hematocrit 48.7 % (37-53); Hemoglobin 16.50 g/dL (11.27-16.99); Mean Corpuscular HGB Conc 33.9 g/dL (30-55); Mean Corpuscular Hemoglobin 31.8 pg (27-33); Mean Corpuscular Volume 93.8 fl (82-101); Nucleated Red Blood Cells % 0 %; Platelet Count 311 10^3/cmm (157-399); Red Blood Count 5.19 10^6/uL (3.85-5.65); White Blood Count 8.73 10^3/uL (3.29-11.43)
--- NOTE | 2025-03-09 13:06 | W.ED.GENADLT ---
HPI - General Adult General: Chief complaint: Back Pain/Injury Stated complaint: sob fall having trouble moving Time Seen by Provider: 03/09/25 12:50 Source: patient Mode of arrival: ambulatory Limitations: no limitations History of Present Illness: Patient is a 54-year-old male who presents to the ED today for medical evaluation of multiple concerns. He states a few days ago his blood sugar got low causing him to fall through his front door. He states his neighbor found him about an hour later lying on the ground. He was able to crawl back to his house. He has continued to care for himself over the past few days. Patient states he is not a known diabetic. He does not have a glucometer and does not check his sugars at home. He states he has a history of hypoglycemia and keeps track of his blood sugars in my head and can tell when it runs low. He has a complaint of some lower back pain and states there is a small bruised area that he must of injured during the fall. He has been ambulatory without difficulty or assistance. He does not complain of leg pain or weakness or numbness. No saddle anesthesia or bowel/bladder dysfunction. He also complains of blood in his stool. Apparently this has been present over the past 3 years. He states because of insurance reasons he has had multiple colonoscopies canceled but states he now has his insurance straightened out and is currently scheduled for another one. He also complains that his throat hurts and it feels swollen. No difficulty breathing/swallowing. Onset (ago): day(s) Location: mouth and back Radiation: non-radiation Severity: mild Associated symptoms: Deny chest pain, dyspnea, headache(s), malaise, rash, palpitations or vomiting Treatments prior to arrival: none Related Data Home Medications ?Medication ?Instructions ?Recorded ?Confirmed ibuprofen 200 mg tablet 600 mg PO Q6H PRN Pain 05/01/23 08/24/24 Previous Rx's ?Medication ?Instructions ?Recorded pantoprazole 40 mg tablet,delayed 40 mg PO BID 6 weeks #84 tabs 08/24/24 release (Protonix) sucralfate 100 mg/mL oral 10 ml PO BID 6 weeks #840 mL 08/24/24 suspension Allergies Allergy/AdvReac Type Severity Reaction Status Date / Time Green foods Allergy ALGY-Anaphy Uncoded 08/24/24 09:57 laxis Review of Systems Const: Denies: fever(s), chills, body aches, fatigue or malaise Eyes: Denies: change in vision or blurry vision ENMT: Reports: throat pain and odynophagia; Denies: uvular edema, enlarged tonsils, ear or mastoid pain, nasal discharge, nasal congestion or sinus pain Card: Denies: chest pain, palpitations, irregular heart rhythm, edema, lightheadedness, pre-syncope, dyspnea on exertion or orthopnea Resp: Denies: dyspnea or hemoptysis GI: Denies: abdominal pain, vomiting or change in bowel habits : Denies: flank pain, difficulty urinating, dysuria, urinary frequency, urinary urgency or urinary hesitancy Musc: Reports: back pain; Denies: neck pain, extremity pain, extremity swelling, joint pain, joint swelling or joint redness Skin/Breast: Denies: rash Neuro: Denies: headache(s), numbness in extremities, weakness in extremities, sensory changes or dizziness PFSH ED PFSH: Medical History No pertinent family history Migraine Social History Smoking and tobacco/nicotine status: never used tobacco/nicotine Physical Exam Const: COMMON NORMALS: no acute distress, patient oriented x3, no limitations, alert and well nourished GENERAL APPEARANCE: cooperative and disheveled ORIENTATION/CONSCIOUSNESS: Yes awake, Yes oriented to person, Yes oriented to place and Yes oriented to time HENMT: COMMON NORMALS: normocephalic and atraumatic HEAD & SCALP: normal to inspection, normocephalic and atraumatic FACE & SINUS: normal facial exam and face symmetric; no edema MOUTH: Normal oral and palatal mucosa present, lip normal, tongue normal and Normal salivary glands and ducts present TEETH & GINGIVA: Yes caries and Yes poor dentition (widespread severe dental disease) THROAT: tonsils normal and posterior oropharynx abnormal erythema; no uvular edema Eye: GENERAL EYE: appearance normal, both eyes and all related structures Neck/C-Spine: COMMON NORMALS: full ROM, no lymphadenopathy, supple and no meningeal signs GENERAL: Yes normal visual inspection, No anterior neck swelling and No submandibular swelling Chest: COMMONS NORMALS: normal inspection of the chest Resp: COMMON NORMALS: normal respiratory effort and clear to auscultation bilaterally AUSCULTATION: clear to auscultation bilaterally Cardio: COMMON NORMALS: regular rate and regular rhythm RATE: regular rate RHYTHM: regular rhythm GI: COMMON NORMALS: Normal to inspection, nondistended, normoactive bowel sounds present, Soft to palpation, non-tender, No hepatosplenomegaly present and no masses PALPATION: Yes Soft to palpation and Yes No hepatosplenomegaly present : COMMON NORMALS: Yes no CVA tenderness BLADDER/KIDNEY EXAM: Yes no CVA tenderness Back/Pelvis: COMMON NORMALS: no CVA tenderness, thoracic and lumbar spine normal to inspection, no thoracic nor lumbar tenderness, thoraco-lumbar ROM normal and straight leg raise negative bilaterally LUMBAR SPINE/LOWER BACK: Yes paraspinal muscle tenderness and Yes straight leg raise negative bilaterally PELVIS: No sciatic notch tenderness SACROILIAC JOINTS: Yes SI joints normal SACRUM: no tenderness COCCYX: no tenderness BACK IMAGE (MALE):  1. small area of abrasion/ecchymosis Extremity: COMMON NORMALS: normal to inspection, full ROM and capillary refill normal GENERAL: Yes normal exam except as noted Neuro: COMMON NORMALS: patient oriented x3, moves all extremities, no focal motor deficits, no sensory deficits noted and gait normal SENSORIUM/ORIENTATION: Yes alert, Yes oriented to person, Yes oriented to place and Yes oriented to time MENINGEAL SIGNS: Yes no meningeal signs Skin: COMMON NORMALS: no rashes or lesions noted GENERAL SKIN EXAM: no rashes or lesions noted Course Vital Signs: Vital signs: Vital Signs Temperature 97.6 F 03/09/25 12:12 Pulse Rate 78 03/09/25 14:20 Respiratory Rate 16 03/09/25 12:12 Blood Pressure 148/94 03/09/25 14:20 Pulse Oximetry 94 03/09/25 14:20 Oxygen Delivery Me thod Room Air 03/09/25 13:01 [facility] - General Adult Medical Decision Making Patient clinically appears in no acute distress. His vital signs are stable. Blood work overall is unremarkable. UA is clear. Strep is negative. XR imaging of his lumbar spine obtained showing no fracture or malalignment. Recommend he follow-up with primary care for re-evaluation if symptoms persist. He may return to the emergency department for onset of further syncopal episodes, chest pain, shortness of breath, difficulty breathing, palpitations, or any other concerns he may have. Medical Records I reviewed the patient's medical records. Lab Data I reviewed the patient's lab results. 03/09/25 13:00 03/09/25 13:00 Radiology Impressions Chest X-Ray 03/09/25 12:03 IMPRESSION: 1. Normal chest. Lumbar Spine X-Ray 03/09/25 13:04 IMPRESSION: 1. Mild degenerative changes and straightening. 2. No fracture or malalignment. Laboratory Results WBC 8.73 10^3/uL (3.29-11.43) 03/09/25 13:00 RBC 5.19 10^6/uL (3.85-5.65) 03/09/25 13:00 Hgb 16.50 g/dL (11.27-16.99) 03/09/25 13:00 Hct 48.7 % (37-53) 03/09/25 13:00 MCV 93.8 fl (82-101) 03/09/25 13:00 MCH 31.8 pg (27-33) 03/09/25 13:00 MCHC 33.9 g/dL (30-55) 03/09/25 13:00 RDW 14.0 % (12.1-15.1) 03/09/25 13:00 Plt Count 311 10^3/cmm (157-399) 03/09/25 13:00 MPV 9.0 fL (7.4-10.4) 03/09/25 13:00 Neut % (Auto) 60.0 % 03/09/25 13:00 Lymph % (Auto) 29.2 % 03/09/25 13:00 [place] % (Auto) 8.0 % 03/09/25 13:00 Eos % (Auto) 2.3 % 03/09/25 13:00 Baso % (Auto) 0.3 % 03/09/25 13:00 Neut # (Auto) 5.23 10^3/uL (1.8-7.7) 03/09/25 13:00 Lymph # (Auto) 2.6 10^3/uL (0.8-4.8) 03/09/25 13:00 [place] # (Auto) 0.7 10^3/uL (0.2-0.9) 03/09/25 13:00 Eos # (Auto) 0.2 10^3/uL (0.0-0.8) 03/09/25 13:00 Baso # (Auto) 0.0 10^3/uL (0.0-0.1) 03/09/25 13:00 Nucleated RBC % (auto) 0 % 03/09/25 13:00 Nucleated RBCs # 0.0 /100WBC 03/09/25 13:00 Sodium 142 mmol/L (136-145) 03/09/25 13:00 Potassium 3.9 mmol/L (3.5-5.1) 03/09/25 13:00 Chloride 104 mmol/L (98-107) 03/09/25 13:00 Carbon Dioxide 27 mmol/L (22-29) 03/09/25 13:00 Anion Gap 14.9 (5-19) 03/09/25 13:00 BUN 4 mg/dL (6-20) L 03/09/25 13:00 Creatinine 0.8 mg/dL (0.7-1.2) 03/09/25 13:00 GFR Calculation 101.5 mL/min (90-130) 03/09/25 13:00 Glucose 118 mg/dL (65-115) H 03/09/25 13:00 Calculated Osmolality 292 mOsm/kg (285-295) 03/09/25 13:00 Calcium 9.0 mg/dL (8.5-10.5) 03/09/25 13:00 Total Bilirubin 0.3 mg/dL (0.15-1.2) 03/09/25 13:00 AST 13 U/L (0-40) 03/09/25 13:00 ALT 13 U/L (0-41) 03/09/25 13:00 Alkaline Phosphatase 52 U/L (40-130) 03/09/25 13:00 Total Protein 7.6 g/dL (6.6-8.7) 03/09/25 13:00 Albumin 4.8 g/dL (3.5-5.2) 03/09/25 13:00 Globulin 2.8 g/dL (1.3-4.6) 03/09/25 13:00 Urine Color Yellow (Yellow) 03/09/25 13:31 Urine Appearance Clear (CLEAR) 03/09/25 13:31 Urine pH 7.0 (5-7) 03/09/25 13:31 Ur Specific [place] 1.002 (1.005-1.030) L 03/09/25 13:31 Urine Protein Negative (Negative) 03/09/25 13:31 Urine Glucose (UA) Negative (Normal) 03/09/25 13:31 Urine Ketones Negative (Negative) 03/09/25 13:31 Urine Blood Negative (Negative) 03/09/25 13:31 Urine Nitrate Negative (Negative) 03/09/25 13:31 Urine Bilirubin Negative (Negative) 03/09/25 13:31 Urine Urobilinogen 0.2 mg/dL (Negative) 03/09/25 13:31 Ur Leukocyte Esterase Negative (Negative) 03/09/25 13:31 Urine RBC 0-2 /hpf (0-2) 03/09/25 13:31 Urine WBC 0-5 /hpf (0-5) 03/09/25 13:31 Ur Squamous Epith Cells 0-5 /hpf (0-5) 03/09/25 13:31 Amorphous Sediment Not Reportable 03/09/25 13:31 Urine Bacteria None seen /hpf (NONE) 03/09/25 13:31 Hyaline Casts 0-4 /lpf H 03/09/25 13:31 Group A Strep Rapid Negative (Negative) 03/09/25 13:23 All radiology interpretation(s) finalized by discharge Discharge Plan Discharge Patient Disposition: Home Clinical Impression: Sore throat Contusion of lower back Qualifiers: Encounter type: initial encounter Qualified Code(s): S30.0XXA - Contusion of lower back and pelvis, initial encounter Syncope Qualifiers: Syncope type: unspecified Qualified Code(s): R55 - Syncope and collapse Condition: Stable Prescriptions: No Action pantoprazole [Protonix] 40 mg tablet,delayed release (DR/EC) 40 mg PO BID 42 Days Qty: 84 1RF sucralfate 100 mg/mL suspension 10 ml PO BID 42 Days Qty: 840 0RF ibuprofen 200 mg Tablet 600 mg PO Q6H PRN (Reason: Pain) Discharge Orders: Discharge ED (Routine); Ordered 03/09/25 Ordered By: Ekta Rivera Referrals: Garrett Bahena [Primary Care Provider, Family Practice] Patient Instructions: Patient Portal & Janeth Instructions Print Language: Bhutanese Coding Level of Care Code ED [employer] for Rajeev Block
[2025-03-09 13:20] LABS: Alanine Aminotransferase 13 U/L (0-41); Albumin Level 4.8 g/dL (3.5-5.2); Alkaline Phosphatase 52 U/L (40-130); Anion Gap 14.9 (5-19); Aspartate Amino Transferase 13 U/L (0-40); Blood Urea Nitrogen 4 mg/dL (6-20); Calcium 9.0 mg/dL (8.5-10.5); Carbon Dioxide 27 mmol/L (22-29); Chloride 104 mmol/L (98-107); Creatinine Clr Calc Pharmacy 109.1597; Globulin 2.8 g/dL (1.3-4.6); Glucose 118 mg/dL (65-115); Osmolality Calculated 292 mOsm/kg (285-295); Potassium 3.9 mmol/L (3.5-5.1); Sodium 142 mmol/L (136-145); Total Protein 7.6 g/dL (6.6-8.7)
[2025-03-09 13:50] LABS: Glucose Urine UA Negative (Normal); Nitrate Urine Negative (Negative); Specific Gravity, Urine 1.002 (1.005-1.030)
[2025-03-09 13:55] LABS: Add Urine Microscopic? YES
[2025-03-09 14:07] LABS: Rapid Strep A Test Negative (Negative)
[2025-03-09 14:20] VITALS: BP 148/94; PULSE 78; O2SAT 94
== END 2025-03-09 14:21 | disposition home or self-care (01) ==
PROVIDERS: Family Medicine; Emergency Provider Physician Assistant; PCP Family Medicine
DX: J02.9 Acute pharyngitis, unspecified (principal); S30.0XXA Contusion of lower back and pelvis, initial encounter; R55 Syncope and collapse; W19.XXXA Unspecified fall, initial encounter
CPT/HCPCS: 36415; 71045; 72100; 80053; 81001; 85025; 87081; 87880; 93005; 99285